=== PATIENT | female | born 1950 | race Caucasian/White ===

== ENCOUNTER 2018-02-07 18:55 | Observation (INO) | payer MEDICARE, BC, SELFPAY ==
[2018-02-07 19:00] VITALS: BP 130/66; PULSE 111; RESP 16; TEMP 36.9; O2SAT 97
--- NOTE | 2018-02-07 19:07 | DI.CT_ITS ---
SYMPTOM/DIAGNOSIS: RLQ AND MID ABD PAIN ABDOMEN AND PELVIC CT: CT scan of the abdomen and pelvis was performed following the uneventful administration of intravenous contrast material. No priors for comparison. Mild dependent atelectatic changes are seen in the lung bases. The liver is normal in size. No suspicious hepatic mass is seen. There is a tiny hypodensity in the posterior aspect of the right lobe likely reflecting a cyst. Portal and superior mesenteric veins are patent. The gallbladder wall mildly enhances and shows mild thickening measuring up to 4 mm. in diameter. There is mild pericholecystic fluid present. No stones are seen. The extrahepatic duct measures up to 1.1 cm. The pancreas is unremarkable. The spleen appears mildly enlarged but otherwise unremarkable. The adrenal glands have a normal appearance. There are bilateral renal cysts. No suspicious solid renal masses or obstruction is identified. The urinary bladder is intact. Reproductive organs are unremarkable as visualized. The aorta is of normal caliber. No significant aneurysmal dilatation is seen. No significant abdominal or pelvic adenopathy, ascites or pneumoperitoneum is present. Note is made of a small fat containing umbilical hernia. There is diverticulosis of the colon but no evidence of acute diverticulitis. The appendix is distended measuring 1.3 cm. in diameter. There is a 1.1 cm. appendicolith present. No periappendiceal abscess is seen. The remainder of the bowel is unremarkable. The bones show no acute abnormality. IMPRESSION: 1. Findings consistent with acute appendicitis with an appendicolith. No evidence of periappendiceal abscess or pneumoperitoneum. 2. Apparent gallbladder wall thickening and pericholecystic fluid. The findings may represent a concomitant acute cholecystitis. Sonographic correlation is recommended.
--- NOTE | 2018-02-07 19:15 | ED.GENADUL_ITS ---
Discharge Plan Disposition Patient Disposition: [facility] Condition: Fair Discharge Details Chief Complaint: Abd Prob Clinical Impression: Acute appendicitis Reason For Visit: ACUTE APPENDICITIS Admit Date/Time: 02/08/18 00:28 Admit Provider: Tommy Her Attending Provider: Tommy Her Primary Care Provider: Radha Alexander ED Provider: Tabby Ricci Discharge Data Discharge Date/Time-TO BE ENTERED AT DEPARTURE: 02/07/18 23:14 Medical Decision Making <JOANA Pan - Last Filed: 02/08/18 11:45> Patient 67-year-old female presenting today with chief complaint of right lower quadrant pain. Reports the pain that began around 11:00 last night. However, at that time the pain is more epigastric and periumbilical. Throughout the course today the pain has slowly migrated to the right lower quadrant. Surgical history significant for tubal ligation, no other abdominal surgeries. She is been febrile at home with T-max of 103. However, she reports this is just prior to her arrival here and she is currently afebrile. She endorses nausea but no vomiting. No change in bowel habits. No change in urinary habits. Denies any dysuria. Patient is tachycardic at 111. Currently afebrile. On exam, patient is exquisitely tender in the right lower quadrant. Positive Rovsing's sign, rebound tenderness, guarding, psoas sign. I am quite concerned , particularly given the patient's history of migratory pain from the periumbilical area to the right lower quadrant, for appendicitis. She is currently endorsing mild nausea and severe pain. She will be given morphine and Zofran. Plan to obtain CT and laboratory evaluation. Discussed this plan with the patient who is in agreement Patient is feeling much improved. 2 mg of morphine and 4 mg of Zofran. Reports he still has minimal pain but is moving easier White count significant for 21.36, neutrophil count of 19.67. UA is positive for protein, moderate blood, few epithelial and few bacteria. CT reviewed by myself as well as Dr. Martinez who is in the department. Her both concerned for appendicitis. Pending radiology report. Dr. Martinez's request, placed an order for 2 g of ceftriaxone IV. Dr. Martinez evaluated the patient, discussed surgical intervention with the patient, obtained informed consent. CT reviewed by radiologist. Liver is notable for moderate hepatic steatosis. Benign subcentimeter hepatic cyst, right lobe. Gallbladder significant for thickening with wall measuring 4 mm. Pericholecystic fluid noted, mild. Bile duct is enlarged measuring 11 mm. No definite pancreatic mass or common duct calculus seen. Spleen is normal no splenomegaly. Adrenals are normal with no mass. Kidneys and ureters are significant for a few bilateral renal cysts, largest of the left kidney measuring 19 mm. Stomach and bowel is significant for moderate sigmoid diverticulosis. Appendix is significant for dilation and fluid filled with a large appendicolith measuring 11 mm. Appendiceal diameter is 13 mm. There is mild periapical appendiceal stranding. Bladder is unremarkable as visualized. Reproductive is unremarkable as visualized. Intraperitoneal space is normal no free air or significant fluid collection. Mild lumbar scoliosis, moderate degenerative changes at disc L5-S1. Soft tissues are significant for small, fat-containing umbilical hernia. Vasculature is normal, no abdominal aortic aneurysm. Lymph nodes are normal with no enlarged lymph nodes Overall impression of the CT is significant for moderate appendicitis with large appendicolith, no surrounding fluid collection or abscess. There is also possible concomitant acute cholecystitis, without visualized gallstones. Advise correlation with abdominal ultrasound. Review these findings with the patient. I again evaluated her abdomen and she does not have any pain in the right upper quadrant, negative Fleming sign. She continues to endorse severe discomfort in the right lower quadrant with gentle palpation. I did question her on previous symptoms of cholecystitis. She does report that in June, after being treated with azithromycin for pneumonia, she developed liver pain. States she has had this occasionally, intermittently since then. Does not correlate this with food. History is very vague and unclear. At this point, I do not find any physical exam findings to suggest acute cholecystitis. I did relay the findings of the CT to Dr. Martinez and his PA. <Hari Redman DO - Last Filed: 02/07/18 20:50> EKG 19: 18 Rate 107, intervals normal, sinus tachycardia, no significant ST elevations or depressions, no T wave inversions, no Q waves, normal EKG. HPI <JOANA Pan - Last Filed: 02/08/18 11:45> General Mode of arrival: ambulatory . Date/Time Provider Initiated Documentation: 02/07/18 19:02 . Limitations to Documentation: no limitations . Information obtained by: patient . History of Present Illness 67 year old F presents to the emergency department with the chief complaint of RLQ abdominal pain, described as moderate, with intensity rated at 8. Quality is described as stabbing, and is localized to the abdomen. Patient reports no radiation. Patient started experiencing this day(s) (1) and it has been constant. No relieving factors improve symptom(s), No exacerbating factors reported . Patient notes fever/chills (states she had a fever at home with Tmax 103, endorses chills), loss of appetite and nausea/vomiting (endorses nausea, no vomiting); denies chest pain, cough, headaches, rash and shortness of breath. Related Data Home Medications Medication Instructions Recorded Confirmed cholecalciferol (vitamin D3) 400 units PO DAILY 02/07/18 02/07/18 [Vitamin D3] magnesium oxide 500 mg PO DAILY 02/07/18 02/07/18 omega-3 fatty acids [Fish Oil 1 cap PO DAILY 02/07/18 02/07/18 Concentrate] Allergies Allergy/AdvReac Type Severity Reaction Status Date / Time azithromycin AdvReac Mild didn't Unverified 02/07/18 19:43 [From Zithromax Z-Francisco] agree with her General Stated Complaint: Abd Prob NIKHIL: 3 Review of Systems <JOANA Pan - Last Filed: 02/08/18 11:45> Constitutional Reports as per HPI, Reports chills, Denies fatigue, Reports fever(s), Denies headache(s) and Reports poor appetite ENT Denies headache(s) Cardiovascular Reports as per HPI, Denies chest pain and Denies dyspnea Respiratory Denies dyspnea Gastrointestinal Reports as per HPI, Reports abdominal pain, Denies change in bowel habits, Denies heartburn, Reports nausea and Denies vomiting Genitourinary Denies system reviewed and no additional complaints, except as docu (patient denies any change in urinary habits) Musculoskeletal Reports as per HPI and Denies back pain Integumentary/Breasts Reports as per HPI and Denies rash Neurologic Denies headache(s) Endocrine Denies fatigue Exam <JOANA Pan - Last Filed: 02/08/18 11:45> Const General: cooperative, healthy appearing, uncomfortable (patient moving slowly, appears uncomfortable), no acute distress and well developed Nutritional Appearance: average body habitus and well nourished Orientation: alert and awake HENMO Head: normal to inspection Mouth: mucous membranes dry (patient appears dry on exam) Teeth and gingiva: abnormal dentition (dentures noted) Resp Effort & Inspection: normal respiratory effort, able to speak in complete sentences and no respiratory distress Auscultation: clear to auscultation bilaterally, no rales, no rhonchi and no wheezes Cardio Rate: regular rate Rhythm: regular rhythm Heart Sounds: S1 normal and S2 normal GI Inspection: abnormal to inspection (patient is very point tender over the RLQ) Palpation: no pulsatile masses, not rigid and tender in the RLQ, at McBurney's point, obturator sign positive, psoas sign positive, with rebound tenderness and Rovsing's sign positive; Fleming's sign negative Auscultation: hypoactive bowel sounds Back/Spine/Pelvis Back: no CVA tenderness Skin General skin exam: no rashes or lesions noted Trauma: no lacerations or abrasions Neuro General: alert and awake Cognition: normal cognition Speech: speech normal Gait: normal gait Psych Appearance: grossly normal and well kempt Mental Status: mental status grossly normal Speech and Movement: speech and movement normal Course <JOANA Pan - Last Filed: 02/08/18 11:45> Vital Signs Temperature 36.9 C 02/07/18 19:00 Pulse 111 H 02/07/18 19:00 Respiratory Rate 16 02/07/18 19:00 Blood Pressure 130/66 02/07/18 19:00 Pulse Oximetry 97 02/07/18 19:00 Temperature 36.9 C 02/07/18 19:00 Temperature Source Skin 02/07/18 19:00 Pulse 111 H 02/07/18 19:00 Respiratory Rate 16 02/07/18 19:00 Blood Pressure 130/66 02/07/18 19:00 Blood Pressure Position Supine 02/07/18 19:00 Pulse Oximetry 97 02/07/18 19:00 Oxygen Delivery Method Room Air 02/07/18 19:00 Oxygen Flow Rate 0 02/07/18 19:00 Pain Level 8 02/07/18 19:00
[2018-02-07 19:19] LABS: Bilirubin Small (Negative); Blood Moderate (Negative); Clarity Sl Cloudy; Glucose Negative (Negative); Ketones 40 mg/dL (Negative); Leukocyte Esterase Negative (Negative); Nitrite Negative (Negative); Specific Gravity 1.025 (1.005-1.025); Urobilinogen 0.2 EU/dL (Up TO 0.2); pH 6.5 (5-8)
[2018-02-07] MEDS: Normal Saline Flush 10 ML SYR IVP (19:25)
[2018-02-07] MEDS: Normal Saline 1,000 ML 1000 ML IV (19:25)
[2018-02-07 19:32] LABS: Bacteria Few HPF (Negative); C & S Indicated? Yes; Casts Negative LPF (Negative); Crystals Negative HPF (Negative); Epithelial Cells Few HPF (Negative); Mucus Moderate (Negative); Other Cells Negative (Negative); RBC 20-50 (0-2); WBC 20-50 HPF (0-5)
[2018-02-07 19:34] LABS: Abs Immature Grans 0.07 k/cumm (0.0-0.09); HGB 13.7 g/dL (12.0-15.5); Immature Grans % 0.3; Lymphocytes % 2.4; Mean Corp. HGB Concentration 33.4 g/dL (32.0-36.0); Mean Corpuscular Volume 86.9 fL (80-95); Mean Platelet Volume 9.7 fL (8.0-11.0); Monocytes % 5.2; Neutrophils % 92.1; Platelet Count 256 x1000/uL (130-400); RBC 4.72 m/cumm (4.00-5.20); RBC Distribution Width 13.3 % (11.7-14.6); White Blood Cell Count 21.36 k/cumm (4.4-10.8)
[2018-02-07 19:36] LABS: Absolute Lymphocyte Count 0.51 k/cumm (1.2-3.4); Absolute Monocyte Count 1.11 k/cumm (0.11-0.7); Absolute Neutrophil Count 19.67 k/cumm (1.2-6.7)
[2018-02-07] MEDS: Ondansetron 4 MG/2 ML VIAL IVP (19:38)
[2018-02-07] MEDS: MORPHine 10 MG/ML VIAL 2 MG IVP (19:39)
[2018-02-07 19:49] LABS: ALT 20 U/L (12-78); AST 18 U/L (15-37); Albumin 3.6 g/dL (3.4-5.0); Alkaline Phosphatase 98 U/L (46-116); Anion Gap 8.1 mmol/L (3-11); BUN 13 mg/dL (7-18); Bilirubin, Total 1.1 mg/dL (0.2-1.0); CO2 27.9 mmol/L (21.0-32.0); CREATININE 0.93 mg/dL (0.55-1.02); Chloride 101 mmol/L (98-107); Estimated GFR 59.78 (mL/min/1.73m2); Glucose 174 mg/dL (70-100); Magnesium 1.8 mg/dL (1.8-2.4); Potassium 3.7 mmol/L (3.5-5.1); Sodium 137 mmol/L (136-145); Total Protein 7.6 g/dL (6.4-8.2)
[2018-02-07 19:55] LABS: Troponin I < 0.02 ng/mL (0.00-0.06)
[2018-02-07] MEDS: Omnipaque 350 MG/ML 100 ML BTL IJ (20:12)
[2018-02-07 20:19] VITALS: BP 130/62; PULSE 101; RESP 16; TEMP 37; O2SAT 98
[2018-02-07 20:45] VITALS: PULSE 106; O2SAT 96
--- NOTE | 2018-02-07 21:11 | W.PREOPHP ---
Documented by User: Bonnie Lou 02/07/18 22:21 Assessment and Plan (1) Acute appendicitis: Current visit: No Status: Acute Plan: Discussed surgery including surgical technique, benefits and risks including but not limited to risk of blood clot, infection and damage to soft tissues/blood vessels and nerves. Patient gives verbal understanding of risks and elevates to proceed with surgery. Patient had opportunity to have questions answered to her satisfaction. Patient will be have appendectomy for acute appendicitis performed by Dr. Her. Ms. Arciniega is a 67 year-old female who presented to the Emergency Room with complaints of right lower quadrant pain. Patient describes pain has been ongoing for the last 24 hours. Pain had originally been generalized abdominal pain but the pain has slowly progressed starting around 4 pm this afternoon to being currently located in the right lower quadrant. She also reports nausea, dry heaving, increased spit production and diarrhea since onset of pain around 11 pm on 02/07/18. While in the ER patient had labs completed which showed elevated WBC of 21.36 H, elevated absolute neutrophils 19.67 H and elevated absolute monocytes 1.11 H. She also underwent CT scan which was reviewed by Dr. Her in the ER and showed findings consistent with acute appendicitis. Patient reports history of liver pain that has been ongoing since she received a course of Azithromycin for pneumonia in June 2017. Pain is aggravated by increased intake of sugar. Pain she has near her liver lasts for a few days. Reports would take milk thistle which did not provide pain relief. Patient reports last episode of liver associated pain approximately several weeks ago. She currently denies pain in that area. Labs done in ER showed elevated total bilirubin of 1.[address] scan report by Dr. Iniguez described Impression: Moderate appendicitis with large appendicolith, no surrounding fluid collection or abscess. There is also possible concomitant acute cholecystitis, without visualized gallstone, as described above. Correlation with abdominal ultrasound may be of value if/when clinically indicated. Pertinent Surgical Information Denies past medical history of: Hypertension, stroke, cardiac issues, angina, asthma, COPD, sleep apnea, renal issues, liver issues, hepatitis, gastrointestinal issues, ulcers, hyperlipidemia, bleeding disorders, seizures, migraines, anxiety, depression, diabetes, autoimmune disorders, thyroid issues Denies prior complications from surgery or anesthesia. Review of Systems Constitutional Denies fever(s), Denies frequent falls and Reports headache(s) ENT Reports headache(s) Cardiovascular Denies chest pain, Denies irregular heart rhythm, Denies dyspnea, Reports dyspnea on exertion (due to current pain) and Denies slow heart rate Respiratory Denies dyspnea, Reports dyspnea on exertion (due to current pain) and Denies wheezing Gastrointestinal Reports as per HPI, Reports abdominal pain (right lower quadrant pain), Denies melena, Denies hematochezia, Denies constipation, Reports diarrhea, Reports nausea and Denies vomiting Genitourinary Denies hematuria, Denies dysuria and Denies urinary urgency Neurologic Denies frequent falls and Reports headache(s) Psychiatric Denies anxiety and Denies depression Allergic/Immunologic Denies wheezing PFSH Acute appendicitis (Acute) History of hand surgery (Acute) Status post tubal ligation (Acute) Medical History Acute appendicitis (Acute) Social History marital status: Smoking/Tobacco Use Status: Former Tobacco Use how long ago did patient quit smokin years alcohol intake: current alcohol intake frequency: holidays/special occasions only substance use type: does not use Surgical History History of hand surgery (Acute) Status post tubal ligation (Acute) Social History marital status: Smoking/Tobacco Use Status: Former Tobacco Use how long ago did patient quit smokin years alcohol intake: current alcohol intake frequency: holidays/special occasions only substance use type: does not use Meds Home Medications Medication Instructions Recorded Confirmed Type cholecalciferol (vitamin D3) 400 units PO DAILY 02/07/18 02/07/18 History [Vitamin D3] magnesium oxide 500 mg PO DAILY 02/07/18 02/07/18 History omega-3 fatty acids [Fish Oil 1 cap PO DAILY 02/07/18 02/07/18 History Concentrate] Allergies Allergy/AdvReac Type Severity Reaction Status Date / Time azithromycin AdvReac Mild didn't Unverified 02/07/18 19:43 [From Zithromax Z-Francisco] agree with her Exam Const General: cooperative and other (laying in bed with eyes closed but is able to answer questions without issues) Orientation: alert and awake HENOK Head: normal to inspection, normocephalic and atraumatic Neck Neck: trachea midline Carotids: normal carotid upstroke Lymphatic: no lymphadenopathy noted Resp Effort & Inspection: normal respiratory effort and able to speak in complete sentences Auscultation: clear to auscultation bilaterally, no rales, no rhonchi and no wheezes Cardio Heart Sounds: S1 normal, S2 normal, no murmurs, no rubs and no other GI Palpation: not rigid and tender Auscultation: normal bowel sounds Other: Tenderness to palpation over right lower quadrant. Rebound tenderness also elicits pain. Positive Rovsigns sign. Results Labs : 02/07/18 19:25 02/07/18 19:25 Laboratory Results - last 24 hr 02/07/18 02/07/18 02/07/18 19:15 19:25 19:25 WBC 21.36 H RBC 4.72 Hgb 13.7 Hct 41.0 MCV 86.9 MCH 29.0 MCHC 33.4 RDW 13.3 Plt Count 256 MPV 9.7 Immature Gran % 0.3 Neutrophils % 92.1 Lymphocytes % 2.4 Monocytes % 5.2 Eosinophils % 0.0 Basophils % 0.0 Absolute Neutrophils 19.67 H Absolute Lymphocytes 0.51 L Absolute Monocytes 1.11 H Absolute Eosinophils 0.00 Absolute Basophils 0.00 Sodium 137 Potassium 3.7 Chloride 101 Carbon Dioxide 27.9 Anion Gap 8.1 BUN 13 Creatinine 0.93 Estimated GFR/1.73 m2 59.78 Glucose 174 H Calcium 9.0 Magnesium 1.8 Total Bilirubin 1.1 H AST 18 ALT 20 Alkaline Phosphatase 98 Troponin I < 0.02 Total Protein 7.6 Albumin 3.6 Urine Color Yellow Urine Clarity Sl cloudy Urine pH 6.5 Ur Specific [place] 1.025 Urine Protein 100 H Urine Ketones 40 H Urine Blood Moderate H Urine Nitrite Negative Urine Bilirubin Small H Urine Urobilinogen 0.2 Ur Leukocyte Esterase Negative Urine RBC 20-50 H Urine WBC 20-50 Ur Epithelial Cells Few Urine Crystals Negative Urine Bacteria Few Urine Casts Negative Urine Mucus Moderate Urine Other Negative Ur Culture Indicated? Yes Urine Glucose Negative Last Vital Signs Temp 37.0 C 02/07/18 20:19 Pulse 101 H 02/07/18 20:19 Resp 16 02/07/18 20:19 BP 130/62 02/07/18 20:19 Pulse Ox 98 02/07/18 20:19
--- NOTE | 2018-02-07 21:18 | DI.VRAD_ITS ---
EXAM: CT Abdomen and Pelvis With Intravenous Contrast EXAM DATE/TIME: 02/07/2018 7:10 PM CLINICAL HISTORY: 67 years old, female; Pain; Abdominal pain; Localized; Right lower quadrant (rlq); Patient HX: Rlq pain TECHNIQUE: Axial computed tomography images of the abdomen and pelvis with intravenous contrast. Coronal and sagittal reformatted images were created and reviewed. COMPARISON: No relevant prior studies available. FINDINGS: Lower thorax: Mild left basilar atelectasis. Small hiatal hernia. ABDOMEN: Liver: Moderate hepatic steatosis. Benign subcentimeter hepatic cyst, right lobe. Gallbladder and bile ducts: Gallbladder wall is thickened, measuring 4 mm. Pericholecystic fluid noted, mild. Common bile duct is enlarged, measuring 11 mm. No definite pancreatic mass or common duct calculus is seen. Pancreas: See Gallbladder And Bile Ducts Finding. Spleen: Normal. No splenomegaly. Adrenals: Normal. No mass. Kidneys and ureters: Few bilateral renal cysts; largest, left kidney, measuring 19 mm. Stomach and bowel: Moderate sigmoid diverticulosis. Appendix: Appendix is dilated and fluid-filled with a large appendicolith, measuring 11 mm. Appendiceal diameter is 13 mm. There is mild periappendiceal stranding. PELVIS: Bladder: Unremarkable as visualized. Reproductive: Unremarkable as visualized. ABDOMEN and PELVIS: Intraperitoneal space: Normal. No free air. No significant fluid collection. Bones/joints: Mild lumbar scoliosis. Moderate degenerative disc changes, L5-S1. Soft tissues: Small, fat containing umbilical hernia. Vasculature: Normal. No abdominal aortic aneurysm. Lymph nodes: Normal. No enlarged lymph nodes. IMPRESSION: Moderate appendicitis with large appendicolith, no surrounding fluid collection or abscess. There is also possible concomitant acute cholecystitis, without visualized gallstone, as described above. Correlation with abdominal ultrasound may be of value if/when clinically indicated. Dictated and Authenticated by: Guzman Iniguez MD. Ordering:TAZ CEE MD
[2018-02-07 21:22] VITALS: PULSE 106; O2SAT 96
[2018-02-07] MEDS: Lactated Ringers 1,000 ML 100 ML IV (22:00)
[2018-02-07 23:25] VITALS: BP 134/66; PULSE 98; RESP 16; TEMP 38.4; O2SAT 97
[2018-02-07] MEDS: Lactated Ringers 1,000 ML 75 ML IV (23:50)
[2018-02-08] VITALS (11 sets, daily range): BP systolic 92–131; BP diastolic 43–73; PULSE 62–94; RESP 16–21; TEMP 36.5–37.1; O2SAT 91–98
[2018-02-08] MEDS: Lidocaine 1% Pres-Free 5 ML VIAL (00:07)
--- NOTE | 2018-02-08 00:14 | APP_PTH ---
PATIENT: Lory Arciniega LOC: U#:[id number] AGE/SX: 67/F ROOM: RE02/08/[address]: Tommy Her DO : 1950 BED: A DIS: 02/09/2018 SPEC #: [id number] RECD: 02/09/18 11:29 STATUS: DANAY REQ #: [id number] ABDULLAHI: 02/08/18 00:[address]: Tommy Her DEPT: Surgical Specimen RECD BY: Kristine Qureshi ENTERED: 02/09/18 11:29 SP TYPE: Appendix OTHR DR: Radha Alexander Tissues: 1 - APPENDIX NOT INCIDENTAL Procedures: GROSS AND MICRO LEVEL 3 Comments: [id number]
--- NOTE | 2018-02-08 00:39 | W.PM.OP ---
Date of service: 02/08/18 Time of Service: 00:39 Operative Note DATE OF PROCEDURE: 02/08/18 PRE-OP DIAGNOSIS: Acute appendicitis POST-OP DIAGNOSIS: same PROCEDURE: Laparoscopic appendectomy SURGEON: Tommy Her COAL CHEMIST: Bonnie Lou ANESTHESIA: GETA (Nick Mccray CRNA; ASA 2E Mallampati class II) and local (1% lidocaine and 0.5% Marcaine with epinephrine) ESTIMATED BLOOD LOSS: 10 PATHOLOGY: other (Appendix) COMPLICATIONS: None Patient was transported to: PACU Patient's condition: stable Indications: 67-year-old female presenting to the emergency room with approximately 24 hours of generalized abdominal pain which is now localized to the right lower quadrant. She had associated nausea vomiting and diarrhea. Her white count was found to be 23,000. CT of the abdomen and pelvis subsequently showed acute appendicitis. Incidental finding also suggested cholecystitis, but recommended ultrasound follow-up. I recommended the patient laparoscopic appendectomy possible open appendectomy. I reviewed the procedure with her, and discussed the risks of the procedure. All her questions were answered to her satisfaction. Consent was obtained to proceed with laparoscopic appendectomy. Findings: Upon entering the abdomen, and inspecting at 360 degrees the appendix is identified in the right lower quadrant. The appendix was dilated all the way down to near its base with there was a short segment of normal diameter appendix. The remainder of the appendix appeared ischemic, inflamed, and suppurative. It was subsequently removed laparoscopically. The gallbladder was inspected during the surgery and no evidence of acute cholecystitis was seen. Procedure Description: The patient was brought to the preanesthesia staging area. Identification confirmed, consent signed, then brought to the operating room. Positioned on the operating table supine with all bony prominences padded. An appropriate time out was taken reviewing the patient's: identification, procedure, allergies, medications, history, special needs, and fire hazard. Antibiotics 2 g ceftriaxone were given prior to the procedure start, and sequential compression devices were placed. An endotracheal tube was placed by the CODY, and sedation was titrated for affect. Once adequate sedation was achieved, a cortez catheter was inserted into the bladder, and the abdomen was prepped with chloraprep and blocked draped in the standard sterile fashion. I started the procedure by making a 4 mm linear transverse incision above the umbilicus, blunt dissection was carried down to the linea alba which was grasped by a Korina clamp. A veress needle was then introduced into the abdomen, and the position checked with a saline drop test. A 5mm trocar was then inserted under directed visualization. The area under the veress and trocar insertion was inspected for injuries, and there were no apparent injuries seen. A second 5 mm trocar was placed in the LLQ at the level of the ASIS, and midclavicular line, with a 12 mm trocar placed two centimeters above the pubic symphysis in the midline. I inspected the gallbladder after all the trocars were in place; there was no evidence of acute cholecystitis. I identified the cecum and the right lower quadrant. The cecum was then manipulated to expose the base of the appendix . A window was created in the mesoappendix at the base of the appendix. Using a Sonoscission the mesoappendix was divided starting distal to the window working proximal. Once the mesoappendix was divided to free up the appendix. The appendix was from the cecum using an EndoGI stapler. Once divided the appendix was placed into an endocatch specimen bag. It was then removed from the abdomen and passed off for pathology. The abdomen was then irrigated with a saline. The abdomen was then desufflated. The trocars were removed under direct visualization. The 12 mm trocar fascia was closed using 0 vicryl suture with a figure of eight fascial suture. All skin incision were closed with 4-0 vicryl suture, and local was infiltrated around all incisions. All counts were reported as correct times two. There were no complications during the procedure. The patient was extubated in the OR and brought to the PACU in good condition.
--- NOTE | 2018-02-08 00:51 | ROE_ITS ---
Date of service: 02/08/18 Time of Service: 00:39 Operative Note DATE OF PROCEDURE: 02/08/18 PRE-OP DIAGNOSIS: Acute appendicitis POST-OP DIAGNOSIS: same PROCEDURE: Laparoscopic appendectomy SURGEON: Tommy Her ASSISTANT PROFESSOR OF ART: Bonnie Lou ANESTHESIA: GETA (Nick Mccray CRNA; ASA 2E Mallampati class II) and local (1 % lidocaine and 0.5% Marcaine with epinephrine) ESTIMATED BLOOD LOSS: 10 PATHOLOGY: other (Appendix) COMPLICATIONS: None Patient was transported to: PACU Patient's condition: stable Indications: 67-year-old female presenting to the emergency room with approximately 24 hours of generalized abdominal pain which is now localized to the right lower quadrant. She had associated nausea vomiting and diarrhea. Her white count was found to be 23,000. CT of the abdomen and pelvis subsequently showed acute appendicitis. Incidental finding also suggested cholecystitis, but recommended ultrasound follow-up. I recommended the patient laparoscopic appendectomy possible open appendectomy. I reviewed the procedure with her, and discussed the risks of the procedure. All her questions were answered to her satisfaction. Consent was obtained to proceed with laparoscopic appendectomy. Findings: Upon entering the abdomen, and inspecting at 360 degrees the appendix is identified in the right lower quadrant. The appendix was dilated all the way down to near its base with there was a short segment of normal diameter appendix. The remainder of the appendix appeared ischemic, inflamed, and suppurative. It was subsequently removed laparoscopically. The gallbladder was inspected during the surgery and no evidence of acute cholecystitis was seen. Procedure Description: The patient was brought to the preanesthesia staging area. Identification confirmed, consent signed, then brought to the operating room. Positioned on the operating table supine with all bony prominences padded. An appropriate time out was taken reviewing the patient's: identification, procedure, allergies , medications, history, special needs, and fire hazard. Antibiotics 2 g ceftriaxone were given prior to the procedure start, and sequential compression devices were placed. An endotracheal tube was placed by the CODY, and sedation was titrated for affect. Once adequate sedation was achieved, a cortez catheter was inserted into the bladder, and the abdomen was prepped with chloraprep and blocked draped in the standard sterile fashion. I started the procedure by making a 4 mm linear transverse incision above the umbilicus, blunt dissection was carried down to the linea alba which was grasped by a Korina clamp. A veress needle was then introduced into the abdomen , and the position checked with a saline drop test. A 5mm trocar was then inserted under directed visualization. The area under the veress and trocar insertion was inspected for injuries, and there were no apparent injuries seen. A second 5 mm trocar was placed in the LLQ at the level of the ASIS, and midclavicular line, with a 12 mm trocar placed two centimeters above the pubic symphysis in the midline. I inspected the gallbladder after all the trocars were in place; there was no evidence of acute cholecystitis. I identified the cecum and the right lower quadrant. The cecum was then manipulated to expose the base of the appendix . A window was created in the mesoappendix at the base of the appendix. Using a Sonoscission the mesoappendix was divided starting distal to the window working proximal. Once the mesoappendix was divided to free up the appendix. The appendix was from the cecum using an EndoGI stapler. Once divided the appendix was placed into an endocatch specimen bag. It was then removed from the abdomen and passed off for pathology. The abdomen was then irrigated with a saline. The abdomen was then desufflated. The trocars were removed under direct visualization. The 12 mm trocar fascia was closed using 0 vicryl suture with a figure of eight fascial suture. All skin incision were closed with 4-0 vicryl suture, and local was infiltrated around all incisions. All counts were reported as correct times two. There were no complications during the procedure. The patient was extubated in the OR and brought to the PACU in good condition.
[2018-02-08] MEDS: Lactated Ringers 1,000 ML 125 ML IV ×2 (01:04→08:56)
[2018-02-08] MEDS: Ketorolac 15 MG/ML VIAL IVP ×4 (05:25→23:10)
[2018-02-08 07:03] LABS: Abs Immature Grans 0.02 k/cumm (0.0-0.09); Absolute Lymphocyte Count 0.38 k/cumm (1.2-3.4); Absolute Monocyte Count 0.18 k/cumm (0.11-0.7); Absolute Neutrophil Count 12.03 k/cumm (1.2-6.7); HCT 34.7 % (36.0-46.0); HGB 11.4 g/dL (12.0-15.5); Immature Grans % 0.2; Mean Corp. HGB Concentration 32.9 g/dL (32.0-36.0); Mean Corpuscular Hemoglobin 29.2 pg (27.0-33.0); Mean Platelet Volume 10.1 fL (8.0-11.0); Monocytes % 1.4; Neutrophils % 95.4; Platelet Count 203 x1000/uL (130-400); RBC Distribution Width 13.6 % (11.7-14.6); White Blood Cell Count 12.61 k/cumm (4.4-10.8)
[2018-02-08 07:17] LABS: ALT 15 U/L (12-78); AST 14 U/L (15-37); Albumin 2.7 g/dL (3.4-5.0); Alkaline Phosphatase 73 U/L (46-116); Anion Gap 8.2 mmol/L (3-11); BUN 10 mg/dL (7-18); Bilirubin, Total 0.8 mg/dL (0.2-1.0); CO2 27.8 mmol/L (21.0-32.0); CREATININE 0.86 mg/dL (0.55-1.02); Calcium 8.4 mg/dL (8.5-10.1); Chloride 105 mmol/L (98-107); Glucose 146 mg/dL (70-100); Potassium 3.9 mmol/L (3.5-5.1); Sodium 141 mmol/L (136-145); Total Protein 6.1 g/dL (6.4-8.2)
[2018-02-08] MEDS: ACETAMINOPHEN 1,000 MG/100 ML BTL 400 MG IVPB ×3 (08:56→23:11)
[2018-02-08] MEDS: Normal Saline Flush 10 ML SYR IVP ×3 (13:00→23:21)
--- NOTE | 2018-02-08 13:40 | PDOC.CMIN ---
- If Service Date Differs Date of service: 02/08/18 Time of Service: 13:40 Care Management Initial Assess REASON FOR HOSPITALIZATION:: Acute Appendicitis PAST MEDICAL HISTORY/PAST SURGICAL HISTORY:: H/O hand surgery, S/P tubal ligation PREVIOUS FUNCTIONAL STATUS/SOCIAL/FAMILY SUPPORTS:: Lory resides with her Adiel and son in [place]. She is independent at baseline, drives, and manages ADL;s CURRENT FUNCTIONAL STATUS:: Currently Lory is ambulating in her room this morning, pleasant and receptive to discussion. Per [facility], Lory remains on clear liquids at this time. ADVANCE DIRECTIVES:: None on file Has patient been provided with information about the portal?: Yes Did the patient sign up for the portal?: No CODE STATUS:: Full Code INSURANCE COVERAGE / FINANCIAL ISSUES:: Medicare CURRENT HOME/COMMUNITY SERVICES/EQUIPMENT:: Currently Lory has no services or medical equipment that she utilizes in the community. PRIMARY CARE PHYSICIAN:: Radha Alexander POTENTIAL DISCHARGE NEEDS:: F/U appointment with Dr. Her PATIENT/FAMILY EDUCATION NEEDS:: Review DC instructions, any limitations, and ongoing DC planning discussion. Discuss 'Ask Me Three' ANTICIPATED BARRIERS TO DISCHARGE:: None identified at this time. TRANSPORTATION:: Via private vehicle with family. PLAN:: Lory will return home wtih no anticipated services once medically cleared. She will F/U with Dr. Her and plan of care as prescribed. lory's family to transport.
--- NOTE | 2018-02-08 15:52 | PGE_ITS ---
Date of Service Date of service: 02/08/18 Time of Service: 15:40 Assessment and Plan (1) Acute appendicitis: Current visit: No Status: Acute Acute appendicitis: Path pending, nonperforated appendix no postoperative antibiotics. Fever to 38.4 just prior to surgery we will plan to observe in hospital until without fever for 24 hours. Laparoscopic appendectomy: Continue pulmonary toilet, DVT prophylaxis, ambulation Pain management: We will start oral pain medication with plan to transition to Tylenol and Toradol to oral at discharge. Cholecystitis: No evidence of acute cholecystitis at examination during surgery we will obtain limited right upper quadrant ultrasound of gallbladder prior to discharge. Continue gallbladder workup as outpatient as needed. Diet: Advance to digestive soft. Disposition: Continue current care. Subjective Patient reports: no new complaints, still having pain, pain is less, tolerating liquids well, voiding w/o difficulty and no bowel movement; denies flatus Interval history since last seen: Has done well after Lap appendectomy for acute appendicitis. Exam Const General: cooperative, comfortable and well developed Nutritional Appearance: average body habitus and well nourished Orientation: alert, awake and oriented x3 Chest Chest: normal inspection of the chest Resp Effort & Inspection: normal respiratory effort Auscultation: clear to auscultation bilaterally Cardio Jugular venous pressure: no JVD Rhythm: regular rhythm Heart Sounds: S1 normal and S2 normal GI Inspection: incision (Clean and intact) Palpation: soft, no guarding and tender in the RLQ; with no rebound tenderness and Rovsing's sign negative Neuro General: moves all extremities, no focal motor deficits and CN's II-XI intact bilaterally Extrem General: normal capillary refill and no clubbing, cyanosis or edema Psych Appearance: grossly normal Mental Status: mental status grossly normal Attitude: cooperative Judgment: judgment good Objective Objective Clinical Data: Vital Signs - 24 hr 02/07/18 19:00 02/07/18 20:19 02/07/18 20:45 Temperature 36.9 C 37.0 C Pulse 111 H 101 H 106 H Respiratory Rate 16 16 Blood Pressure 130/66 130/62 Pulse Oximetry 97 98 96 02/07/18 21:22 02/07/18 23:25 02/08/18 00:41 Temperature 38.4 C H 36.8 C Pulse 106 H 98 H 94 H Respiratory Rate 16 20 Blood Pressure 134/66 106/46 L Pulse Oximetry 96 97 91 L 02/08/18 00:47 02/08/18 00:52 02/08/18 00:57 Temperature 36.8 C Pulse 88 86 83 Respiratory Rate 21 21 20 Blood Pressure 95/48 L 93/43 L 92/46 L Pulse Oximetry 92 L 92 L 93 L 02/08/18 01:30 02/08/18 03:50 02/08/18 07:35 Temperature 36.8 C 37.1 C 36.7 C Pulse 75 70 74 Respiratory Rate 19 18 16 Blood Pressure 96/62 L 97/61 L 112/63 Pulse Oximetry 95 94 L 96 02/08/18 11:45 Temperature 37.1 C Pulse 62 Respiratory Rate 16 Blood Pressure 110/70 Pulse Oximetry 97 Intake & Output 02/07/18 02/08/18 02/08/18 18:59 06:59 18:59 Intake Total 2687.5 / 2687.5 2123.333 / 2123.333 Output Total 700 / 700 Balance 1986.5 / 1986.5 2123.333 / 2123.333 Weight 72.7 kg Intake: IV 2687.5 / 2687.5 983.333 / 983.333 Oral 1140 / 1140 Output: Urine 650 / 650 Estimated Blood Loss 50 / 50 Other: Urine Color Yellow Urine Appearance Clear Urine Odor Normal Comment voidx3 per pT, no measurements given. Emesis Description None Voiding Methods Toilet Toilet Laboratory Results WBC 12.61 k/cumm (4.4-10.8) H D 02/08/18 06:25 RBC 3.90 m/cumm (4.00-5.20) L 02/08/18 06:25 Hgb 11.4 g/dL (12.0-15.5) L D 02/08/18 06:25 Hct 34.7 % (36.0-46.0) L 02/08/18 06:25 MCV 89.0 fL (80-95) 02/08/18 06:25 MCH 29.2 pg (27.0-33.0) 02/08/18 06:25 MCHC 32.9 g/dL (32.0-36.0) 02/08/18 06:25 RDW 13.6 % (11.7-14.6) 02/08/18 06:25 Plt Count 203 x1000/uL (130-400) 02/08/18 06:25 MPV 10.1 fL (8.0-11.0) 02/08/18 06:25 Immature Gran % 0.2 02/08/18 06:25 Neutrophils % 95.4 02/08/18 06:25 Lymphocytes % 3.0 02/08/18 06:25 Monocytes % 1.4 02/08/18 06:25 Eosinophils % 0.0 02/08/18 06:25 Basophils % 0.0 02/08/18 06:25 Absolute Neutrophils 12.03 k/cumm (1.2-6.7) H 02/08/18 06:25 Absolute Lymphocytes 0.38 k/cumm (1.2-3.4) L 02/08/18 06:25 Absolute Monocytes 0.18 k/cumm (0.11-0.7) 02/08/18 06:25 Absolute Eosinophils 0.00 k/cumm (0.0-0.7) 02/08/18 06:25 Absolute Basophils 0.00 k/cumm (0.0-0.2) 02/08/18 06:25 Sodium 141 mmol/L (136-145) 02/08/18 06:25 Potassium 3.9 mmol/L (3.5-5.1) 02/08/18 06:25 Chloride 105 mmol/L (98-107) 02/08/18 06:25 Carbon Dioxide 27.8 mmol/L (21.0-32.0) 02/08/18 06:25 Anion Gap 8.2 mmol/L (3-11) 02/08/18 06:25 BUN 10 mg/dL (7-18) 02/08/18 06:25 Creatinine 0.86 mg/dL (0.55-1.02) 02/08/18 06:25 Estimated GFR/1.73 m2 >= 60.00 (mL/min/1.73m2) 02/08/18 06:25 Glucose 146 mg/dL (70-100) H 02/08/18 06:25 Calcium 8.4 mg/dL (8.5-10.1) L 02/08/18 06:25 Magnesium 1.8 mg/dL (1.8-2.4) 02/07/18 19:25 Total Bilirubin 0.8 mg/dL (0.2-1.0) 02/08/18 06:25 AST 14 U/L (15-37) L 02/08/18 06:25 ALT 15 U/L (12-78) 02/08/18 06:25 Alkaline Phosphatase 73 U/L (46-116) 02/08/18 06:25 Troponin I < 0.02 ng/mL (0.00-0.06) 02/07/18 19:25 Total Protein 6.1 g/dL (6.4-8.2) L 02/08/18 06:25 Albumin 2.7 g/dL (3.4-5.0) L 02/08/18 06:25 Urine Color Yellow (Yellow) 02/07/18 19:15 Urine Clarity Sl cloudy 02/07/18 19:15 Urine pH 6.5 (5-8) 02/07/18 19:15 Ur Specific [place] 1.025 (1.005-1.025) 02/07/18 19:15 Urine Protein 100 mg/dL (Negative) H 02/07/18 19:15 Urine Ketones 40 mg/dL (Negative) H 02/07/18 19:15 Urine Blood Moderate (Negative) H 02/07/18 19:15 Urine Nitrite Negative (Negative) 02/07/18 19:15 Urine Bilirubin Small (Negative) H 02/07/18 19:15 Urine Urobilinogen 0.2 EU/dL (Up TO 0.2) 02/07/18 19:15 Ur Leukocyte Esterase Negative (Negative) 02/07/18 19:15 Urine RBC 20-50 (0-2) H 02/07/18 19:15 Urine WBC 20-50 HPF (0-5) 02/07/18 19:15 Ur Epithelial Cells Few HPF (Negative) 02/07/18 19:15 Urine Crystals Negative HPF (Negative) 02/07/18 19:15 Urine Bacteria Few HPF (Negative) 02/07/18 19:15 Urine Casts Negative LPF (Negative) 02/07/18 19:15 Urine Mucus Moderate (Negative) 02/07/18 19:15 Urine Other Negative (Negative) 02/07/18 19:15 Ur Culture Indicated? Yes 02/07/18 19:15 Urine Glucose Negative mg/dL (Negative) 02/07/18 19:15
[2018-02-08] MEDS: POTASSIUM CHLORIDE/D5-0.45NACL 1,000 ML 100 MEQ IV (18:30)
[2018-02-09 03:58] VITALS: BP 111/67; PULSE 61; RESP 16; TEMP 36.5; O2SAT 97
[2018-02-09] MEDS: POTASSIUM CHLORIDE/D5-0.45NACL 1,000 ML 100 MEQ IV (04:48)
[2018-02-09] MEDS: Normal Saline Flush 10 ML SYR IVP (05:52)
[2018-02-09] MEDS: Ketorolac 15 MG/ML VIAL IVP (05:52)
--- NOTE | 2018-02-09 07:02 | DI.US_ITS ---
SYMPTOMS/DIAGNOSIS: CT FINDINGS OF ACUTE CHOLECYSTITIS, DILATED DUCT LIMITED ABDOMINAL ULTRASOUND: Sonographic evaluation of the liver and gallbladder was obtained. Limited images of the liver were obtained. No gross abnormality is seen. No intrahepatic biliary ductal dilatation is present. There are several stones seen within the gallbladder, the largest measures 2.0 cm. There is debris seen within the gallbladder. The gallbladder wall is thickened at 0.4 cm. No pericholecystic fluid is seen. The common duct is dilated at 0.8 cm. No ductal stones are seen sonographically. The visualized portions of the pancreatic head are unremarkable. IMPRESSION: Cholelithiasis, gallbladder wall thickening and sludge. Mild extrahepatic common ductal dilatation without evidence of choledocholithiasis. The findings raise the question of acute cholecystitis. Please correlate clinically.
[2018-02-09 07:09] LABS: HCT 33.7 % (36.0-46.0); HGB 10.8 g/dL (12.0-15.5); Mean Corpuscular Volume 90.3 fL (80-95); Mean Platelet Volume 10.3 fL (8.0-11.0); Platelet Count 195 x1000/uL (130-400); RBC 3.73 m/cumm (4.00-5.20); RBC Distribution Width 13.9 % (11.7-14.6); White Blood Cell Count 5.24 k/cumm (4.4-10.8)
[2018-02-09 07:30] VITALS: BP 124/72; PULSE 67; RESP 16; TEMP 36.8; O2SAT 96
--- NOTE | 2018-02-09 10:38 | PDOC.CMDIS ---
- If Service Date Differs Date of service: 02/09/18 Time of Service: 10:38 LACE Index Scoring Tool - Questions: Length of Stay (in days): 2 Acuity (Admit via E.D.?): Yes E.D. Visits: 1 - Answers: Total Score: 6 Risk of Readmission: Low Risk Care Management Discharge Reason for Hospitalization: Acute Appendicitis Discharge Plan: Lory will return home today with no services. She will F/U with Dr. Her and plan of care as prescribed. Lory's family to transport. Patient/Family Education Needs: Review DC instructions, any limitations, and discuss 'Ask Me Three'
--- NOTE | 2018-02-09 12:34 | DSE_ITS ---
Date of service: 02/09/18 Time of Service: 08:00 DS: Diagnosis Discharge Diagnosis (1) Acute appendicitis: Status: Acute Asessment and Plan: Laparoscopic Appendectomy Performed: Operative Note DATE OF PROCEDURE: 02/08/18 PRE-OP DIAGNOSIS: Acute appendicitis POST-OP DIAGNOSIS: same PROCEDURE: Laparoscopic appendectomy SURGEON: Tommy Her PROCEDURE WRITER: Bonnie Lou ANESTHESIA: GETA (Nick Mccray CRNA; ASA 2E Mallampati class II) and local (1 % lidocaine and 0.5% Marcaine with epinephrine) ESTIMATED BLOOD LOSS: 10 PATHOLOGY: other (Appendix) COMPLICATIONS: None Patient was transported to: PACU Patient's condition: stable Indications: 67-year-old female presenting to the emergency room with approximately 24 hours of generalized abdominal pain which is now localized to the right lower quadrant. She had associated nausea vomiting and diarrhea. Her white count was found to be 23,000. CT of the abdomen and pelvis subsequently showed acute appendicitis. Incidental finding also suggested cholecystitis, but recommended ultrasound follow-up. I recommended the patient laparoscopic appendectomy possible open appendectomy. I reviewed the procedure with her, and discussed the risks of the procedure. All her questions were answered to her satisfaction. Consent was obtained to proceed with laparoscopic appendectomy. Findings: Upon entering the abdomen, and inspecting at 360 degrees the appendix is identified in the right lower quadrant. The appendix was dilated all the way down to near its base with there was a short segment of normal diameter appendix. The remainder of the appendix appeared ischemic, inflamed, and suppurative. It was subsequently removed laparoscopically. The gallbladder was inspected during the surgery and no evidence of acute cholecystitis was seen. Procedure Description: The patient was brought to the preanesthesia staging area. Identification confirmed, consent signed, then brought to the operating room. Positioned on the operating table supine with all bony prominences padded. An appropriate time out was taken reviewing the patient's: identification, procedure, allergies , medications, history, special needs, and fire hazard. Antibiotics 2 g ceftriaxone were given prior to the procedure start, and sequential compression devices were placed. An endotracheal tube was placed by the LEARNING SUPPORT SERVICES DIRECTOR, and sedation was titrated for affect. Once adequate sedation was achieved, a cortez catheter was inserted into the bladder, and the abdomen was prepped with chloraprep and blocked draped in the standard sterile fashion. I started the procedure by making a 4 mm linear transverse incision above the umbilicus, blunt dissection was carried down to the linea alba which was grasped by a Korina clamp. A veress needle was then introduced into the abdomen , and the position checked with a saline drop test. A 5mm trocar was then inserted under directed visualization. The area under the veress and trocar insertion was inspected for injuries, and there were no apparent injuries seen. A second 5 mm trocar was placed in the LLQ at the level of the ASIS, and midclavicular line, with a 12 mm trocar placed two centimeters above the pubic symphysis in the midline. I inspected the gallbladder after all the trocars were in place; there was no evidence of acute cholecystitis. I identified the cecum and the right lower quadrant. The cecum was then manipulated to expose the base of the appendix . A window was created in the mesoappendix at the base of the appendix. Using a Sonoscission the mesoappendix was divided starting distal to the window working proximal. Once the mesoappendix was divided to free up the appendix. The appendix was from the cecum using an EndoGI stapler. Once divided the appendix was placed into an endocatch specimen bag. It was then removed from the abdomen and passed off for pathology. The abdomen was then irrigated with a saline. The abdomen was then desufflated. The trocars were removed under direct visualization. The 12 mm trocar fascia was closed using 0 vicryl suture with a figure of eight fascial suture. All skin incision were closed with 4-0 vicryl suture, and local was infiltrated around all incisions. All counts were reported as correct times two. There were no complications during the procedure. The patient was extubated in the OR and brought to the PACU in good condition. Discharge Plan Disposition Patient Disposition: HOME Condition: Fair Discharge Details Reason For Visit: ACUTE APPENDICITIS Admit Date/Time: 02/08/18 00:28 Admit Provider: Tommy Her Attending Provider: Tommy Her Primary Care Provider: Melany AlexanderMarina Del Rey Hospital Course Hospital Course: Procedures: Laparoscopic Appendectomy HPI: 67 y/o female presenting to ER with < 24 hours of generalized abdominal pain which localized to RLQ by time of presentation to the ER. She had assoiciated n/v. Her WBC 21, and CT A/P subsequently showed findings of acute appendicitis with question of cholecystitis. It was recommended that she undergo a laparoscopic appendectomy possible open appendectomy. The procedure was reviewed with her, and risks of the procedure were discussed. All her questions were answered to her satisfaction. No promises were made, or guarantees given. Consent was obtaine to proceed with laparoscopic appendectomy. Hospital course: Patient underwent Lap. appendectomy without complications. Her post operative course was unremarkable. She did have a fever to 38.4 around the time of surgery , so she was observed until she had an complete 24 hours without a fever. The appendix was not perforated. No antibiotics were given after the preoperative ceftriaxone. Otherwise, she did very well post-operatively. She was up ambulating at base line postoperatively. Her diet was advanced without difficulty. Her pain control was transition to PO pain medications without difficulty, and she required no narcotic pain medication post operatively. By Postoperative day one she was tolerating a diet, her pain was controlled with oral medications, she was afebrile, and ambulating at baseline. She was discharged home Home Meds and New Rx's Prescriptions: New ibuprofen 200 mg capsule 600 mg PO QID PRN (Reason: appendectomy) Qty: 30 RF: 0 acetaminophen [Tylenol] 325 mg capsule 650 mg PO Q4H PRNQty: 30 RF: 0 Continue omega-3 fatty acids [Fish Oil Concentrate] 1,000 mg Capsule 1 cap PO DAILY RF: 0 cholecalciferol (vitamin D3) [Vitamin D3] 400 unit Tablet 400 units PO DAILY RF: 0 magnesium oxide 500 mg Tablet 500 mg PO DAILY RF: 0 Discharge Instructions Instructions: Laparoscopic Appendectomy (DC) Additional Instructions: General Surgery Discharge Information Discharge Activities: 1. Continue incentive spirometry 10-15 times~every hour while awake and as tolerated 2. Ambulate at least 3 times a day for 15 minutes and as tolerated 3. Out of bed at least 3 times a day for 2 hours at a time, and as tolerated 4. You can shower, pat wounds dry, do not rub Restrictions: 1. No heavy lifting, pushing, or pulling over 20 pounds for 2 weeks, no strenuous bending or twisting. 2. No swimming, baths, or immersion of wounds in water for 2 weeks. If you are having fever, chills, nausea, vomiting, pain not controlled with pain medications, bleeding or drainage from your wounds. Call [phone] or [phone] (after hours). I understand the above instructions and have no questions. _ Signature of Patient or Responsible Adult Escort Date/Time _ Name of Responsible Adult Escort _ Sugnature of Nurse Date/Time Stand Alone Forms: Nursing Discharge Form Referrals: Tommy Her DO [ [facility] STAFF PHYSICIAN] - 03/02/18 9:15 am (Follow up after Lap appendectomy) Activity:: see instruction Equipment/Supplies:: No Equipment Needed Diet:: As Tolerated Discharge Orders Discharge Orders: Discharge Order (Routine); Ordered 02/09/18 Ordered By: Tommy Her Discharge Data Discharge Date/Time-TO BE ENTERED AT DEPARTURE: 02/09/18 09:34 DS: Summary Status at Discharge Functional status at discharge: independent ambulation Overall status at discharge: patient is progressing back to baseline Time Spent with Patient Less than 30 minutes Exam Const General: cooperative and no acute distress Nutritional Appearance: average body habitus and well nourished Orientation: alert, awake and oriented x3 HENMT Head: normal to inspection, normocephalic and atraumatic Ears: hearing grossly normal bilaterally General nose exam: external nose normal Face and sinus: normal facial exam Mouth: oral mucosae normal Eyes General: appearance normal, both eyes and all related structures Periorbital: periorbital findings normal Sclera: sclerae normal Pupils: PERRL EOM: EOM intact bilaterally Neck Neck: full ROM, trachea midline and supple Chest Chest: normal inspection of the chest Resp Effort & Inspection: normal respiratory effort and able to speak in complete sentences Auscultation: clear to auscultation bilaterally Cardio Rate: regular rate Rhythm: regular rhythm Heart Sounds: S1 normal and S2 normal GI Inspection: non-distended and incision (clean and intact) Palpation: soft, no guarding and tender in the RLQ (mild ttp); with no rebound tenderness Percussion: normal to percussion Skin General skin exam: no rashes or lesions noted and turgor normal Neuro General: moves all extremities, no focal motor deficits and CN's II-XI intact bilaterally Extrem General: no clubbing, cyanosis or edema Psych Appearance: grossly normal Mental Status: mental status grossly normal Mood: congruent mood Affect: normal affect Judgment: judgment good DS: Data Vitals/I&O Vitals and I&O: Vital Signs Temperature 36.8 C 02/09/18 07:30 Temperature Source Skin 02/09/18 07:30 Pulse 67 02/09/18 07:30 Pulse Rhythm Regular 02/09/18 07:30 Respiratory Rate 16 02/09/18 07:30 Respiratory Effort Non-Labored 02/09/18 07:30 Respiratory Depth Normal 02/09/18 07:30 Respiratory Pattern Normal 02/09/18 07:30 Blood Pressure 124/72 02/09/18 07:30 Blood Pressure Position Supine 02/07/18 19:00 Pulse Oximetry 96 02/09/18 07:30 Respiratory End-tidal CO2 34 02/08/18 00:57 Oxygen Delivery Method Room Air 02/09/18 07:30 Oxygen Flow Rate 0 02/09/18 07:30 Pain Level 5 02/09/18 07:30 Comment 02/08/18 11:45 Intake & Output 02/08/18 02/09/18 02/09/18 18:59 06:59 18:59 Intake Total 2803.333 / 2803.333 1315 / 1315 1846.667 / 1846.667 Balance 2803.333 / 2803.333 1315 / 1315 1846.667 / 1846.667 Intake: IV 1183.333 / 6249.385 5998 / 1315 1056.667 / 1056.667 Oral 1620 / 1620 790 / 790 Other: Urine Color Yellow Urine Appearance Clear Comment voidx3 per pT, no measurements given. Void x1 in the toilet. RN unable to visualize urine. Voiding Methods Toilet Toilet Labs on day of discharge: Labs from last 24 hours 02/09/18 06:23 WBC 5.24 D RBC 3.73 L Hgb 10.8 L Hct 33.7 L MCV 90.3 MCH 29.0 MCHC 32.0 RDW 13.9 Plt Count 195 MPV 10.3 PFSH Acute appendicitis (Acute) History of hand surgery (Resolved) Status post tubal ligation (Resolved) Medical History Acute appendicitis (Acute) Social History Smoking/Tobacco Use Status: Former Tobacco Use how long ago did patient quit smokin years alcohol intake: current alcohol intake frequency: holidays/special occasions only substance use type: does not use Surgical History History of hand surgery (Resolved) Status post tubal ligation (Resolved) Social History Smoking/Tobacco Use Status: Former Tobacco Use how long ago did patient quit smokin years alcohol intake: current alcohol intake frequency: holidays/special occasions only substance use type: does not use
== END 2018-02-09 09:34 | disposition home or self-care (01) ==
LOC: ER 23:00 → SUR 23:15 → MS 02-08 01:36
PROVIDERS: Admitting Provider Surgery; Emergency Provider Physician Assistant; PCP Family Medicine; Visit Provider Surgery
PROC: 0DTJ4ZZ Resection of Appendix, Percutaneous Endoscopic Approach (ICD-10-PCS; CPT 44970; principal; 2018-02-07 21:05)
DX: K35.890 Other acute appendicitis without perforation or gangrene (principal); R50.9 Fever, unspecified
CPT/HCPCS: 44970; 36415; 80053; 85027; 93005; 96361; 96365; 96375; 99219; 99285; NC; 74177; 76705; 81003; 81015; 83735; 84484; 85025; 87086; 88304; 93010; G0378; J0131; J1100; J1885; J2250; J2270; J2405; J3010; J3490

== ENCOUNTER 2018-02-24 06:13 | Day surgery (SDC) | payer MEDICARE, BC, SELFPAY ==
[2018-02-24] VITALS (7 sets, daily range): BP systolic 112–139; BP diastolic 50–73; PULSE 61–72; RESP 13–22; TEMP 36.4–36.7; O2SAT 97–99
[2018-02-24] MEDS: Lactated Ringers 1,000 ML 30 ML IV ×2 (06:55→08:27)
[2018-02-24 07:08] LABS: ALT 20 U/L (12-78); AST 17 U/L (15-37); Albumin 3.6 g/dL (3.4-5.0); Alkaline Phosphatase 95 U/L (46-116); BUN 9 mg/dL (7-18); Bilirubin, Total 1.4 mg/dL (0.2-1.0); CREATININE 0.92 mg/dL (0.55-1.02); Calcium 9.1 mg/dL (8.5-10.1); Chloride 105 mmol/L (98-107); Glucose 106 mg/dL (70-100); Potassium 3.4 mmol/L (3.5-5.1); Sodium 145 mmol/L (136-145); Total Protein 7.1 g/dL (6.4-8.2)
[2018-02-24] MEDS: Omnipaque 300 MG/ML 50 ML BTL (08:41)
--- NOTE | 2018-02-24 08:55 | DI.RAD_ITS ---
SYMPTOM/DIAGNOSIS: CHOLELITHIASIS CHOLANGIOGRAM: Fluoroscopy Time: 20 sec 2.76 mGy An intraoperative cholangiogram was carried out and reveals opacification of the cystic duct remnant where the spiral valves of heister are well demonstrated. No mass or obstruction is noted at this level. There is dilatation of the common hepatic and common duct. The proximal portion of the right and left hepatic duct is visualized. Also the proximal and mid portion of the main pancreatic duct are demonstrated and appear unremarkable. There is free flow of contrast material in to the duodenum. SUMMARY: Normal O.R. cholangiogram.
[2018-02-24] MEDS: Cellulose,Oxidized 4X8 1 PACKET MC (08:56)
--- NOTE | 2018-02-24 09:01 | GB_PTH ---
PATIENT: Lory Arciniega LOC: [facility] U#:[id number] AGE/SX: 67/F ROOM: RE02/24/[address]: Tommy Her DO : 1950 BED: DIS: 02/24/2018 SPEC #: [id number] RECD: 02/24/18 12:42 STATUS: DANAY REQ #: [id number] ABDULLAHI: 02/24/18 09:[address]: Tommy Her DEPT: Surgical Specimen RECD BY: Kristine Qureshi ENTERED: 02/24/18 12:42 SP TYPE: GB OTHR DR: Radha Alexander Tissues: 1 - GALLBLADDER Procedures: GROSS AND MICRO LEVEL 3 Comments: [id number]
[2018-02-24] MEDS: Lidocaine 1% Pres-Free 5 ML VIAL (09:15)
--- NOTE | 2018-02-24 09:30 | PDOC.DSDIS_ITS ---
Discharge Plan Disposition Patient Disposition: HOME Condition: Good Discharge Details Reason For Visit: Biliary Colic Attending Provider: Tommy Her Primary Care Provider: Radha Alexander Home Meds and New Rx's Prescriptions: New tramadol 50 mg Tablet 50 mg PO Q6H PRN PRNQty: 12 RF: 0 Continued omega-3 fatty acids [Fish Oil Concentrate] 1,000 mg Capsule 1 cap PO DAILY RF: 0 cholecalciferol (vitamin D3) [Vitamin D3] 400 unit Tablet 400 units PO DAILY RF: 0 magnesium oxide 500 mg Tablet 500 mg PO DAILY RF: 0 ibuprofen 200 mg capsule 600 mg PO QID PRN (Reason: appendectomy) Qty: 30 RF: 0 acetaminophen [Tylenol] 325 mg capsule 650 mg PO Q4H PRNQty: 30 RF: 0 Enzyme Digest Capsule 2 cap PO .LUNCH, DINNER RF: 0 Cbd Oil RF: 0 vitamin E 400 unit Capsule 400 unit PO DAILY RF: 0 calcium carbonate-vitamin D3 [Calcium 500 + D (D3)] 500 mg(1,250mg) -125 unit Tablet 2 tab PO DAILY RF: 0 Tumeric RF: 0 Protilis RF: 0 Gentain RF: 0 Cbd Oil 1 ea PO PRN PRNRF: 0 Discharge Instructions Instructions: Laparoscopic Cholecystectomy (DC) Additional Instructions: General Surgery Discharge Information Discharge Activities: 1. Skin glue will wear off in a couple weeks 2. Ambulate at least 3 times a day for 15 minutes and as tolerated 3. Out of bed at least 3 times a day for 2 hours at a time, and as tolerated 4. You can shower, pat wounds dry, do not rub Restrictions: 1. No heavy lifting, pushing, or pulling, over 20 pounds for 2 weeks, no strenuous bending or twisting. 2. No swimming, baths, or immersion of wounds in water for 2 weeks. If you are having fever, chills, nausea, vomiting, pain not controlled with pain medications, bleeding or drainage from your wounds. Call [phone] or [phone] (after hours). I understand the above instructions and have no questions. Signature of Patient or Responsible Adult Escort Date/Time Name of Responsible Adult Escort Signature of Nurse Date/Time Stand Alone Forms: DSU Post op Instructions, Chencho Hubbard (DSU) Referrals: Tommy Her DO [ [facility] STAFF PHYSICIAN] - 03/11/18 9:15 am (Follow up after cholecystectomy) Activity:: see instructions Remove Dressings/Wound Care:: Do Not Remove Shower/Bathe:: 24 hours Diet:: low fat Discharge Orders Discharge Orders: Discharge Order (Routine); Ordered 02/24/18 Ordered By: Tommy Her DS: Diagnosis Discharge Diagnosis (1) Biliary colic: Status: Acute Asessment and Plan: Laparoscopic Cholecystectomy performed: Operative Note DATE OF PROCEDURE: 02/24/18 PRE-OP DIAGNOSIS: Biliary colic POST-OP DIAGNOSIS: other (Chronic cholecystitis with cholelithiasis) PROCEDURE: Laparoscopic cholecystectomy with intraoperative cholangiogram SURGEON: Tommy Her VEHICLE OPERATOR: Radha Peoples ANESTHESIA: GETA (Hien Hidalgo CRNA; ASA 2 Mallampati class II) and local (1% lidocaine with 0.5% Marcaine with epinephrine) ESTIMATED BLOOD LOSS: 2 PATHOLOGY: other (Gallbladder) COMPLICATIONS: None Patient was transported to: PACU Patient's condition: stable Laboratory Tests 02/24/18 06:45 Total Bilirubin 1.4 H AST 17 ALT 20 Alkaline Phosphatase 95 Albumin 3.6 Indications: 67-year-old female who originally presented 2 weeks ago with acute appendicitis. CT at the time indicated acute appendicitis, but also suggested acute cholecystitis with dilated biliary duct, thickened gallbladder wall, and question of pericholecystic fluid. Patient at that time underwent laparoscopic appendectomy without complications, the gallbladder was inspected at that time and found not to have acute findings. Subsequent abdominal ultrasound did demonstrate cholelithiasis and patient's history suggestive of biliary colic, with right upper quadrant pain after eating fatty meals and associated nausea and occasional vomiting. Pain often radiated to the right scapula. It was recommended that she undergo laparoscopic cholecystectomy after appropriate period of recovery from her acute appendicitis. It is been a little over 2 weeks since her surgery which she is recovering from well, and she presents today for laparoscopic cholecystectomy with intraoperative cholangiogram. Findings: Intraoperative cholangiogram demonstrated no definitive filling defects to suggest a common duct stone. There was prompt filling of the duodenum the biliary tree was well-defined to the secondary branches. Short segment of the pancreatic duct was visualized. There was a question of a kinking of the common duct in the pancreatic head. We will reviewed this with radiologist, with a plan for MRCP to further elucidate this if need be. Gallbladder was removed laparoscopically. Procedure Description: The patient was brought to the pre-anesthesia staging area where her name and identification were confirmed. The patient was then brought to the operating room, and placed supine on the table. All bony prominence were padded. The patient received pre-operative antibiotics, cefotetan 2 g IV. An appropriate time out was performed addressing the patient's: identification, allergies, medications, antibiotics, blood bank, metal, and fire risks. An endotracheal tube was placed by the CONTINUOUS YARN DYEING MACHINE OPERATOR, and sedation was titrated for effect. Once adequate sedation was achieved, the abdomen was prepped with chloroprep, and blocked draped in the standard sterile fashion. I began by making a 4mm linear, transverse, supraumbilical incision, blunt dissection was carried down to the linea alba which was grasped and elevated. A veress needle was then inserted into the abdomen, with its positioning checked by the saline drop test. The abdomen was then inflated to 15 mmHg without apparent incident. A 5mm trocar was then inserted into the abdomen, through the incision, under direct visualization. The area under the veress needle, and trocar insertion was inspected, and no there was no apparent injury. The upper abdomen was then inspected 180 degrees. The Gallbladder was identified in the right upper quadrant the coloration was consistent with chronic cholecystitis. The liver appeared normal, and no other acute pathology was identified. I then placed the remainder of my trocars under direct visualization. A 12 mm trocar was placed subxiphoid in the midline. Two 5mm trocars were placed in the RUQ, two centimeters subcostal. One was placed at the anterior axillary line, and the other was placed at the mid-clavicular line. The gallbladder was then grasped by the fundus which was elevated up over the dome of theliver. The patient was placed in reverse trendelenburg with left side down. The infundibulum was then exposed; subsequently, manipulated caudad, and laterally. This exposed the triangle of Calot. The peritoneum overlying the cystic duct, and artery was then stripped from proximal from the gallbladder to distal exposing the cystic duct and artery. These were then circumferentially dissected which exposed the critial view of the cystic duct, cystic artery, with liver behind. A Muñoz clamp was placed over the infundibulum, and a catheter threaded into the duct side of the infundibulum. Its positioning was then tested with saline. Once positioning was confirmed a cholangiogram was performd. The choleangiogram showed the cystic duct, CBD, common hepatic ducts, and left and right hepatic ducts clearly. There was prompt uptake of contrast into the duodenum, and no filling defects were visualized. The cystic duct and artery were then clipped, with to clips distal to the gallbladder, one clip proximal. The cystic duct and cystic artery were then divided between the proximal and distal clips. The gallbladder was then excised from the gallbladder fossa of the liver in the standard antegrade fashion with cautery. Once, the gallbladder was from the fossa, it was placed in a endocatch bag and removed from the abdomen. The right upper quadrant was then irrigated. Hemostasis was obtained with cautery, and surgicel was used to re-enforce hemostasis in the fossa. The abdomen was then desufflated, and the trocars removed under direct visualization. All skin inscisions were closed with 4-0 vicryl in a subcuticular fashion. Local was infiltrated around all the incsions. All counts were reported as correct times two. The patient was extubated in the OR, and brought to the post ansthesia care unit in good condition.
--- NOTE | 2018-02-24 09:33 | ROE_ITS ---
Date of service: 02/24/18 Time of Service: 09:30 Operative Note DATE OF PROCEDURE: 02/24/18 PRE-OP DIAGNOSIS: Biliary colic POST-OP DIAGNOSIS: other (Chronic cholecystitis with cholelithiasis) PROCEDURE: Laparoscopic cholecystectomy with intraoperative cholangiogram SURGEON: Tommy Her MECHANICAL FACILITIES TECHNICIAN: Radha Peoples ANESTHESIA: GETA (Hien Hidalgo CRNA; ASA 2 Mallampati class II) and local (1% lidocaine with 0.5% Marcaine with epinephrine) ESTIMATED BLOOD LOSS: 2 PATHOLOGY: other (Gallbladder) COMPLICATIONS: None Patient was transported to: PACU Patient's condition: stable Implants: Laboratory Tests 02/24/18 06:45 Total Bilirubin 1.4 H AST 17 ALT 20 Alkaline Phosphatase 95 Albumin 3.6 Indications: 67-year-old female who originally presented 2 weeks ago with acute appendicitis. CT at the time indicated acute appendicitis, but also suggested acute cholecystitis with dilated biliary duct, thickened gallbladder wall, and question of pericholecystic fluid. Patient at that time underwent laparoscopic appendectomy without complications, the gallbladder was inspected at that time and found not to have acute findings. Subsequent abdominal ultrasound did demonstrate cholelithiasis and patient's history suggestive of biliary colic, with right upper quadrant pain after eating fatty meals and associated nausea and occasional vomiting. Pain often radiated to the right scapula. It was recommended that she undergo laparoscopic cholecystectomy after appropriate period of recovery from her acute appendicitis. It is been a little over 2 weeks since her surgery which she is recovering from well, and she presents today for laparoscopic cholecystectomy with intraoperative cholangiogram. Findings: Intraoperative cholangiogram demonstrated no definitive filling defects to suggest a common duct stone. There was prompt filling of the duodenum the biliary tree was well-defined to the secondary branches. Short segment of the pancreatic duct was visualized. There was a question of a kinking of the common duct in the pancreatic head. We will reviewed this with radiologist, with a plan for MRCP to further elucidate this if need be. Procedure Description: The patient was brought to the pre-anesthesia staging area where her name and identification were confirmed. The patient was then brought to the operating room, and placed supine on the table. All bony prominence were padded. The patient received pre-operative antibiotics, cefotetan 2 g IV. An appropriate time out was performed addressing the patient's: identification, allergies, medications, antibiotics, blood bank, metal, and fire risks. An endotracheal tube was placed by the DIRECTOR OF PHILANTHROPY, and sedation was titrated for effect. Once adequate sedation was achieved, the abdomen was prepped with chloroprep, and blocked draped in the standard sterile fashion. I began by making a 4mm linear, transverse, supraumbilical incision, blunt dissection was carried down to the linea alba which was grasped and elevated. A veress needle was then inserted into the abdomen, with its positioning checked by the saline drop test. The abdomen was then inflated to 15 mmHg without apparent incident. A 5mm trocar was then inserted into the abdomen, through the incision, under direct visualization. The area under the veress needle, and trocar insertion was inspected, and no there was no apparent injury. The upper abdomen was then inspected 180 degrees. The Gallbladder was identified in the right upper quadrant the coloration was consistent with chronic cholecystitis. The liver appeared normal, and no other acute pathology was identified. I then placed the remainder of my trocars under direct visualization. A 12 mm trocar was placed subxiphoid in the midline. Two 5mm trocars were placed in the RUQ, two centimeters subcostal. One was placed at the anterior axillary line, and the other was placed at the mid-clavicular line. The gallbladder was then grasped by the fundus which was elevated up over the dome of theliver. The patient was placed in reverse trendelenburg with left side down. The infundibulum was then exposed; subsequently, manipulated caudad, and laterally. This exposed the triangle of Calot. The peritoneum overlying the cystic duct, and artery was then stripped from proximal from the gallbladder to distal exposing the cystic duct and artery. These were then circumferentially dissected which exposed the critial view of the cystic duct, cystic artery, with liver behind. A Muñoz clamp was placed over the infundibulum, and a catheter threaded into the duct side of the infundibulum. Its positioning was then tested with saline. Once positioning was confirmed a cholangiogram was performd. The choleangiogram showed the cystic duct, CBD, common hepatic ducts, and left and right hepatic ducts clearly. There was prompt uptake of contrast into the duodenum, and no filling defects were visualized. The cystic duct and artery were then clipped, with to clips distal to the gallbladder, one clip proximal. The cystic duct and cystic artery were then divided between the proximal and distal clips. The gallbladder was then excised from the gallbladder fossa of the liver in the standard antegrade fashion with cautery. Once, the gallbladder was from the fossa, it was placed in a endocatch bag and removed from the abdomen. The right upper quadrant was then irrigated. Hemostasis was obtained with cautery, and surgicel was used to re-enforce hemostasis in the fossa. The abdomen was then desufflated, and the trocars removed under direct visualization. All skin inscisions were closed with 4-0 vicryl in a subcuticular fashion. Local was infiltrated around all the incsions. All counts were reported as correct times two. The patient was extubated in the OR, and brought to the post ansthesia care unit in good condition.
[2018-02-24] MEDS: Ondansetron 4 MG/2 ML VIAL IVP (09:48)
[2018-02-24] MEDS: traMADol 50 MG TAB PO (10:49)
== END 2018-02-24 11:28 | disposition home or self-care (01) ==
PROVIDERS: PCP Family Medicine; Visit Provider Surgery
PROC: 0FT44ZZ Resection of Gallbladder, Percutaneous Endoscopic Approach (ICD-10-PCS; CPT 47563; principal; 2018-02-24 07:30)
DX: R10.84 Generalized abdominal pain (principal); K80.10 Calculus of gallbladder with chronic cholecystitis without obstruction; K82.8 Other specified diseases of gallbladder
CPT/HCPCS: 47563; 36415; 80053; 74300; 88304; J0690; J1100; J1885; J2405; J3010; Q9967

== ENCOUNTER → 2018-03-11 13:46 | Outpatient (BNVA) | payer MEDICARE, SELFPAY | PROVIDERS: PCP Family Medicine; Referring Provider Family Medicine; Visit Provider Surgery | DX: Z48.815 Encounter for surgical aftercare following surgery on the digestive system (principal); K80.10 Calculus of gallbladder with chronic cholecystitis without obstruction ==

== ENCOUNTER 2018-03-30 00:25 | Outpatient (CLI) | payer MEDICARE, BC, SELFPAY ==
--- NOTE | 2018-03-30 13:51 | DI.US_ITS ---
SYMPTOMS/DIAGNOSIS: PAIN, F/U ABNORMAL CT SCAN, ABNORMAL GALLBLADDER WITH DYSPLASIA ON PATHOLOGY, S/P CHOLECYSTECTOMY ON 02/24/18, PAIN/DISCOMFORT SINCE SURGERY MRI OF THE ABDOMEN: Pre and post contrast MRI of the abdomen was performed. Comparison CT scan is 02/07/18. In the region of the gallbladder fossa, there is a 1.6 x 1.4 cm round collection, which is hyperintense on T2 and hypointense on T1 weighted images. Following contrast administration, there is peripheral enhancement noted. This was not present on the CT scan of the abdomen and pelvis prior to cholecystectomy. There is no biliary ductal dilatation. No hepatic mass is seen. There are a few tiny hyperintense foci on the T2 weighted images, likely reflecting small cysts within the liver. The pancreas is unremarkable. There are bilateral renal cysts, the largest is seen in the left kidney and measures 1.9 x 1.8 cm. No abdominal ascites is present. The spleen appears grossly unremarkable. IMPRESSION: 1. Status post cholecystectomy. 2. New 1.6 cm fluid collection seen in the region of the gallbladder fossa. It shows thin peripheral enhancement following contrast administration. Differential considerations include abscess, resolving hematoma or seroma or biloma. 3. No intra/extra-hepatic biliary ductal dilatation. 4. Bilateral renal cysts.
[2018-03-30] MEDS: Gadoterate meglumine 20 ML VIAL 15 ML IVP (15:03)
== END 2018-03-30 00:45 ==
PROVIDERS: PCP Family Medicine; Visit Provider Surgery
DX: G89.18 Other acute postprocedural pain (principal); N28.1 Cyst of kidney, acquired; Z90.49 Acquired absence of other specified parts of digestive tract; K68.11 Postprocedural retroperitoneal abscess
CPT/HCPCS: 74183

== ENCOUNTER 2018-10-18 11:50 | Emergency (ER) | payer MEDICARE, BC, SELFPAY ==
[2018-10-18 12:03] VITALS: BP 146/92; TEMP 36.6
--- NOTE | 2018-10-18 12:23 | ED.GENADUL_ITS ---
Discharge Plan Disposition Patient Disposition: HOME Condition: Good Discharge Details Chief Complaint: RashLesion Clinical Impression: Tick bite Primary Care Provider: Radha Alexander ED Provider: Hari Redman Home Meds and New Rx's Prescriptions: New doxycycline hyclate 100 mg tablet 100 mg PO BID 10 Days Qty: 20 RF: 0 No Action omega-3 fatty acids [Fish Oil Concentrate] 1,000 mg Capsule 1 cap PO DAILY RF: 0 cholecalciferol (vitamin D3) [Vitamin D3] 400 unit Tablet 400 units PO DAILY RF: 0 magnesium oxide 500 mg Tablet 500 mg PO DAILY RF: 0 ibuprofen 200 mg capsule 600 mg PO QID PRN (Reason: appendectomy) Qty: 30 RF: 0 acetaminophen [Tylenol] 325 mg capsule 650 mg PO Q4H PRNQty: 30 RF: 0 Enzyme Digest Capsule 2 cap PO .LUNCH, DINNER RF: 0 Cbd Oil RF: 0 vitamin E 400 unit Capsule 400 unit PO DAILY RF: 0 calcium carbonate-vitamin D3 [Calcium 500 + D (D3)] 500 mg(1,250mg) -125 unit Tablet 2 tab PO DAILY RF: 0 Tumeric RF: 0 Protilis RF: 0 Cbd Oil 1 ea PO PRN PRNRF: 0 Discharge Instructions Instructions: Tick Bite (ED) Additional Instructions: Your rash is concerning given the source being a tick bite. Although it does not look like Lyme disease at this time I do feel that this could certainly develop into it. Please take the antibiotic as directed. Do not take it with calcium carbonate, or milk or dairy products. Make sure to take it on a full stomach otherwise it can cause nausea or vomiting. Avoid any significant light exposure as he will have notable increase in photosensitivity while on this antibiotic. If you notice any worsening of your symptoms, or any new symptoms such as vomiting, diarrhea, fever, chills, shortness of breath, chest pain, numbness, weakness, or fainting , please return immediately to the emergency department for reevaluation. Please follow up with your primary care provider as soon as possible for reassessment and reevaluation. As always, it was a pleasure participating in your medical care today. Discharge Data Discharge Date/Time-TO BE ENTERED AT DEPARTURE: 10/18/18 13:12 Medical Decision Making This is a 68-year-old female who presents with a rash on her buttock. 1 week ago she has but I think she removed the tick and its head, they heard the tick. More like a dog tick not a deer tick. She does not have to take at this time. 24 hours ago she noticed a mild rash on her buttock, which eventually led to a bull's-eye-like lesion. She denies any other systemic symptoms of fever or chills. No arthralgias or myalgias. Vital signs are notably unremarkable. Signs and symptoms appear consistent with a mild rash secondary to a tick bite. No lesions in the mouth or hands. No evidence of life-threatening erythema migrans is certainly on the nipple. It may just be a histaminic rash as well, however because of the atypical timing though I do feel that treatment is indicated. We will give doxycycline course for the patient. We discussed red flags for which to watch out for as well as the side effects of the medication. I have extensively reviewed the treatment plan and discharge instructions with the patient. I have addressed all patient concerns at this time. The patient was made aware of what symptoms to monitor for that would warrant a return to the emergency department. Discussed the plan with the patient, they demonstrate verbal understanding and agreement with our assessment and plan at this time. HPI General Date/Time Provider Initiated Documentation: 10/18/18 12:18 . HPI Narrative: This is a 68-year-old female with no significant past medical history who presents today for evaluation of a tick bite. 1 week ago she was bit on her buttock by a tick, she removed the tick completely. She states that it was a black tick with no red. There is no significant redness or rash at that time, she remained asymptomatic however 24 hours ago she noticed a small red lesion at the site where the tick had bitten, 12 hours ago she noted a bull's-eye-like target lesion, and then currently she notes significant erythema mild tenderness in that area. Aside for this rash she denies any symptoms of fever, chills, arthralgias or myalgias. She denies any headache or neck pain. She has no other complaints at this time. No other modifying factors. Related Data Home Medications Medication Instructions Recorded Confirmed cholecalciferol (vitamin D3) 400 units PO DAILY 02/07/18 03/11/18 [Vitamin D3] magnesium oxide 500 mg PO DAILY 02/07/18 03/11/18 omega-3 fatty acids [Fish Oil 1 cap PO DAILY 02/07/18 03/11/18 Concentrate] acetaminophen [Tylenol] 650 mg PO Q4H PRN #30 cap 02/09/18 03/11/18 ibuprofen 600 mg PO QID PRN #30 cap 02/09/18 03/11/18 Cbd Oil 02/20/18 03/11/18 Protilis 02/20/18 03/11/18 Tumeric 02/20/18 03/11/18 calcium carbonate-vitamin D3 2 tab PO DAILY 02/20/18 03/11/18 [Calcium 500 + D (D3)] digestive enzymes [Enzyme Digest] 2 cap PO .LUNCH, DINNER 02/20/18 03/11/18 vitamin E 400 unit PO DAILY 02/20/18 03/11/18 Cbd Oil 1 ea PO PRN PRN 02/24/18 03/11/18 doxycycline hyclate 100 mg PO BID 10 Days #20 tab 10/18/18 Previous Rx's Medication Instructions Recorded acetaminophen [Tylenol] 650 mg PO Q4H PRN #30 cap 02/09/18 ibuprofen 600 mg PO QID PRN #30 cap 02/09/18 doxycycline hyclate 100 mg PO BID 10 Days #20 tab 10/18/18 Allergies Allergy/AdvReac Type Severity Reaction Status Date / Time azithromycin AdvReac Mild didn't Verified 03/11/18 13:51 [From Zithromax Z-Francisco] agree with her General Stated Complaint: RashLesion NIKHIL: 4 Review of Systems Review of Systems All systems reviewed & are unremarkable except as noted in HPI and below PFSH Surgical History (Updated 03/07/18 @ 11:46 by Tommy Her DO) History of appendectomy (Resolved) History of cholecystectomy (Resolved) History of hand surgery (Resolved) History of laparoscopic appendectomy (Resolved) Social History (Updated 02/07/18 @ 21:49 by Bonnie Lou) Smoking/Tobacco Use Status: Former Tobacco Use Alcohol Intake: current Alcohol Intake frequency: holidays/special occasions only Drug use: Never Substance use type: does not use Do you feel safe at home: Yes Do you feel safe in your relationship?: Yes Exam Narrative Exam Narrative: 1.Const: Well-nourished, Well-developed, appearing stated age 2.Eyes: PERRL, no conjunctival injection, and symmetrical lids. 3.ENT: Atraumatic external nose and ears. Moist MM. Neck: Symmetric, trachea midline, No thyromegaly. 4.CVS: +S1/S2, No murmurs or gallops. Peripheral pulses 2+ and equal in all extremities. Brisk capillary refill in all extremities. 5.RESP: Unlabored respiratory effort. Clear to auscultation bilaterally. No wheezes rales or rhonchi 6.GI: Soft, Nontender/Nondistended, No hepatosplenomegaly. No guarding or rebound. 7.MSK: Normocephalic/Atraumatic, Extremities w/o deformity or ttp No cyanosis or clubbing, Normal movement of all extremities 8.Skin: Warm, Dry. There is a slight 5 cm in diameter erythematous lesion on the patient's buttock, slight clearing in the pattern of a bull's-eye lesion. Raised border. No fluctuance. Minimal tenderness. Negative Nikolsky sign. No large vesicles or bulla. No palpable purpura. No oral lesions. No mucosal lesions. No evidence of severe cellulitis. No evidence of vaccine preventable rash. 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 Sensation grossly intact, no focal neurologic deficits. 10.Psych: (AAO) x3. Appropriate mood and affect Course Vital Signs Temperature 36.6 C 10/18/18 12:03 Blood Pressure 146/92 H 10/18/18 12:03 Temperature 36.6 C 10/18/18 12:03 Temperature Source Temporal Artery Scan 10/18/18 12:03 Respiratory Effort 10/18/18 12:07 Blood Pressure 146/92 H 10/18/18 12:03 Blood Pressure Position Sitting 10/18/18 12:03 Oxygen Delivery Method Room Air 10/18/18 12:03 Oxygen Flow Rate 0 10/18/18 12:03
== END 2018-10-18 13:12 | disposition home or self-care (01) ==
PROVIDERS: Emergency Provider Student in an Organized Health Care Education/Training Program; PCP Family Medicine
DX: R21 Rash and other nonspecific skin eruption (principal); S30.860A Insect bite (nonvenomous) of lower back and pelvis, initial encounter; W57.XXXA Bitten or stung by nonvenomous insect and other nonvenomous arthropods, initial encounter
CPT/HCPCS: 99283

== ENCOUNTER → 2020-11-06 13:01 | Outpatient (BNVA) | payer MEDICARE, BC, SELFPAY | PROVIDERS: PCP Registered Nurse; Referring Provider Family Medicine; Visit Provider Urology | DX: R31.29 Other microscopic hematuria (principal) | CPT/HCPCS: 81003; 99215 ==

== ENCOUNTER → 2020-12-11 14:26 | Outpatient (BNVA) | payer MEDICARE, BC, SELFPAY | PROVIDERS: PCP Registered Nurse; Referring Provider Registered Nurse; Visit Provider Urology | DX: R31.29 Other microscopic hematuria (principal); N28.1 Cyst of kidney, acquired | CPT/HCPCS: 99443 ==

== ENCOUNTER 2021-08-08 21:18 | Outpatient (REF) | payer MEDICARE, BC, SELFPAY ==
[2021-08-08 19:59] LABS: HCT 39.9 % (36.0-46.0); HGB 13.1 g/dL (11.2-15.7); MCH 28.9 pg (27.0-33.0); MCHC 32.8 % (32.0-36.0); MCV 88 fL (80-95); MPV 11.9 fL (8.0-11.0); Platelet Count 193 10^3/uL (130-400); RBC 4.54 10^6/uL (3.93-5.22); RDW 13.2 % (11.7-14.6); RDW-SD 42.7 fL; WBC 4.28 10^3/uL (4.4-10.8)
[2021-08-08 20:42] LABS: ALT 28 U/L (14-59); AST 25 U/L (15-37); Albumin 3.9 g/dL (3.4-5.0); Alkaline Phosphatase 95 U/L (46-116); Anion Gap 10.8 mmol/L (3-11); BUN 12 mg/dL (7-18); Bilirubin, Total 1.1 mg/dL (0.2-1.0); CO2 26.2 mmol/L (21.0-32.0); CREATININE 1.1 mg/dL (0.55-1.02); Calcium 9.3 mg/dL (8.5-10.1); Chloride 105 mmol/L (98-107); Estimated GFR 48.69 (mL/min/1.73m2); Glucose 110 mg/dL (74-106); Potassium 3.6 mmol/L (3.5-5.1); Sodium 142 mmol/L (136-145); TSH 1.74 uIU/mL (0.36-3.74); Total Protein 6.9 g/dL (6.4-8.2)
[2021-08-10 12:29] LABS: Lyme Ab w Rflx to Lyme Confirm Negative (Negative)
[2021-08-11 15:56] LABS: Anaplasma phagocytophilum Negative (Negative); B. miyamotoi PCR Negative (Negative); Babesia divergens/MO-1 Negative (Negative); Babesia duncani Negative (Negative); Babesia microti Negative (Negative); Ehrlichia chaffeensis Negative (Negative); Ehrlichia ewingii/canis Negative (Negative); Ehrlichia muris eauclairensis Negative (Negative)
== END 2021-08-08 21:19 | disposition home or self-care (01) ==
LOC: NCHCN 21:18
PROVIDERS: PCP Registered Nurse; Visit Provider Physician Assistant
DX: R53.83 Other fatigue (principal); Z11.8 Encounter for screening for other infectious and parasitic diseases
CPT/HCPCS: 80053; 85027; 87798; 84439; 84443; 86618

== ENCOUNTER 2021-08-15 08:28 | Outpatient (REF) | payer MEDICARE, BC, SELFPAY ==
[2021-08-15 15:00] LABS: Mono Screening POSITIVE (Negative)
== END 2021-08-15 08:29 | disposition home or self-care (01) ==
LOC: NCHCN 08:28
PROVIDERS: PCP Registered Nurse; Visit Provider Physician Assistant
DX: R53.83 Other fatigue (principal)
CPT/HCPCS: 86308

== ENCOUNTER → 2021-08-21 14:07 | Outpatient (BNVA) | payer MEDICARE, BC, SELFPAY | PROVIDERS: PCP Physician Assistant; Referring Provider Registered Nurse; Visit Provider Nurse Practitioner Gerontology | DX: R30.0 Dysuria (principal); R31.9 Hematuria, unspecified | CPT/HCPCS: 51798; 81003; 99213 ==

== ENCOUNTER 2021-08-21 15:33 | Outpatient (REF) | payer MEDICARE, BC, SELFPAY ==
[2021-08-21 16:09] LABS: Bilirubin Negative (Negative); Blood Moderate (Negative); Clarity Clear (Clear); Glucose Negative (Negative); Ketones Negative (Negative); Leukocyte Esterase Negative (Negative); Nitrite Negative (Negative); Specific Gravity 1.015 (1.005-1.025); Urobilinogen 0.2 EU/dL (Up TO 0.2)
[2021-08-21 16:23] LABS: Bacteria Negative HPF (Negative); C & S Indicated? No; Crystals Negative HPF (Negative); Epithelial Cells Moderate HPF (Negative); Mucus Trace (Negative); WBC 0-2 HPF (0-5)
== END 2021-08-21 15:34 | disposition home or self-care (01) ==
LOC: LBN 15:33
PROVIDERS: PCP Physician Assistant; Visit Provider Nurse Practitioner Gerontology
DX: R31.9 Hematuria, unspecified (principal)
CPT/HCPCS: 81003; 81015

== ENCOUNTER 2021-09-24 13:40 | Outpatient (CLI) | payer MEDICARE, BC, SELFPAY ==
--- NOTE | 2021-09-24 08:15 | DI.RAD_ITS ---
Exam(s) XR HIP RT COMPLETE AP PELVIS EXAM: XR HIP RT COMPLETE AP PELVIS INDICATION: pain in hip. COMPARISON: CR XR HIP MIN 2V RT from 09/06/2020 TECHNIQUE: 2D digital imaging was performed. Two views. FINDINGS: The hip joint spaces are well maintained. There is mild acetabular spurring. There is minimal spurr ing at the SI joints. IMPRESSION: Minimal degenerative changes. DATA REPOSITORY: RADIATION DOSE DELIVERED:
--- OUTSIDE RECORDS SUMMARY | 2021-09-24 13:42 | XMS_ITS | Encounter Summary ---
:1950 Author Organization [facility] Address [address] [place] [address] Care Team Providers Name Role Phone Unknown, Provider Unavailable Radha Alexander MD Primary Care Provider [phone] Encounter Details Date Type Department Care Team Description 08/09/2021 Lab Requisition [facility] Outr Resulting Lab, Pathology & Laboratory Provider [facility] [address], [place] [id number] Social History Tobacco Use Types Packs/Day Years Used Date Never Assessed Sex Assigned at Date Recorded Not on file documented as of this encounter Plan of Treatment Not on filedocumented as of this encounter Procedures Procedure Name Priority Date/Time Associated Diagnosis Comme nts LYME AB Routine 08/08/2021 15:22 EDT Results for this procedure are i n the results section . documented in this encounter Results LYME AB (08/08/2021 15:22 EDT) Pathologist Sig nature Lyme Ab Negative Negative [facility] Specimen Blood - Venous blood (substance) Performing Organization Address City/State/ZIP Code Phon e Number [facility] [address] [place] [address] SERVICES documented in this encounter Visit Diagnoses Not on filedocumented in this encounter Care Teams Route Deliverer Relationship Specialty Start Date End Date Radha Alexander MD PCP - General 02/16/18 [address] [place] [address] Unknown, ProviderMD 02/10/18 documented as of this encounter
--- OUTSIDE RECORDS SUMMARY | 2021-09-24 13:42 | XMS_ITS | Encounter Summary ---
:[address] [facility] Address [address] [place] [address] Care Team Providers Name Role Phone Unknown, Provider MD Primary Care Provider Unknown, Provider MD Unavailable Encounter Details Date Type Department Care Team Description 02/08/2018 Results Only [facility]- Bam Dunbar, DO [phone] [facility] [place], [place] [id number] (Wo rk) Social History Tobacco Use Types Packs/Day Years Used Date Never Assessed Sex Assigned at Date Recorded Not on file documented as of this encounter Plan of Treatment Not on filedocumented as of this encounter Procedures Procedure Name Priority Date/Time Associated Diagnosis Comme nts SURGICAL PATHOLOGY Routine 02/08/2018 11:40 Resul ts for this EST procedure are i n the results section. documented in this encounter Results SURGICAL PATHOLOGY (02/08/2018 11:40 EST) Pathology Report: SURGICAL PATHOLOGY REPORT [facility] Reports generated via electronic interface contain malathi ginal data; LABORATORY however they are lacking the format of the original re port. SERVICES Caution should be taken when reading/interpreting unfo rmatted reports. Name: ? LORY STEVEN ? Accession #: ? [id number] ? : ? 1950 (Age: [age]) ??F ? Collect Date: ? 02/08/2018 ? Location: ? [facility] ? Receive Date: ? 02/10/20 18 ? Provider: BAM SARABIA DO Copy to: JASMIN PITTMAN MD ? Final Pathologic Diagnosis: APPENDIX, LAPAROSCOPIC APPENDECTOMY: - Acute transmural suppurative appendicitis and periap pendicitis. Document reviewed and electronically signed by: DIANA MANZANO MD Report ??Date: 02/12/2018 16:48 By the signature above, the attending physician certif ies that he/she has personally conducted a gross and/or microscopic examin ation of the described specimens and rendered or confirmed the above diagnosi s. Specimen(s) Received: Appendix Clinical History: Acute appendicitis Gross Description: ? Received in formalin labelled with proper patient identification (initials T, S) and appendix is a ve rmiform appendix (11.5 cm in length x 0.9-1.3 cm in diameter), with a moderate a mount of attached mesoappendix. The proximal margin is stapled. ? The serosa is dusky, burrows-brown, focally glistening, and focally irregular. The cut surface is composed of a burrows-bonner wall. The average wall thickness is less than 0.1 cm to 0.2 cm with no discernable perfora tion site. The lumen ranges from 0.6-1.2 cm in di ameter and contains a 1.1 cm fecalith. The proximal margin is inked blue. ? The section adjacent to the proxi mal stapled margin, two volunteer patient representative cross sections and one half of the longitudinally bise cted distal tip are submitted in 1. Dr. Dominguez 02/10/2018 3:38 PM End of Report Specimen Performing Organization Address City/State/ZIP Code Phon e Number [facility] [address] [place] [address] SERVICES documented in this encounter Visit Diagnoses Not on filedocumented in this encounter Care Teams Follow Up Clerk Relationship Specialty Start Date End Date Unknown, Provider, PCP - General 02/10/18 02/15/18 Unknown, ProviderMD 02/10/18 documented as of this encounter
--- OUTSIDE RECORDS SUMMARY | 2021-09-24 13:42 | XMS_ITS | Encounter Summary ---
:1950 Author Organization [facility] Address [address] [place] [address] Care Team Providers Name Role Phone Unknown, Provider Unavailable Radha Alexander MD Primary Care Provider [phone] Encounter Details Date Type Department Care Team Description 09/15/2020 Lab Requisition [facility] Outr Resulting Lab, Pathology & Laboratory Provider [facility] acute hospital [address] [place], [place] [address] Social History Tobacco Use Types Packs/Day Years Used Date Never Assessed Sex Assigned at Date Recorded Not on file documented as of this encounter Plan of Treatment Not on filedocumented as of this encounter Procedures Procedure Name Priority Date/Time Associated Comments Diagnosis HEPATITIS C AB W Routine 09/15/2020 13:40 Results for this REFLEX TO HCV RNA BY EDT procedu re are in PCR the results section. HIV 1/2 ANTIGEN AND Routine 09/15/2020 13:40 Resu lts for this ANTIBODY, 4TH EDT procedure are in GENERATION the results section. documented in this encounter Results HEPATITIS C AB W REFLEX TO HCV RNA BY PCR (09/15/2020 13:40 EDT) Pathologist Sig nature Hep C Antibody Negative Negative [facility] Specimen Blood - Venous blood (substance) Performing Organization Address City/State/ZIP Code Phon e Number [facility] [address] [place] [address] SERVICES HIV 1/2 ANTIGEN AND ANTIBODY, 4TH GENERATION (09/15/2020 13:40 EDT) HIV 1 and 2 Negative Negative [facility] Antibody/p24 Comment: LABORATORY Antigen, 4th If acute HIV-1 infection is suspected in a high risk ??patient, submit plasma specimen for HIV-1 RNA quantitation test. SERV ICES Generation Fourth Generation assay performed on the [employer]. Specimen Blood - Venous blood (substance) Performing Organization Address City/State/ZIP Code Phon e Number [facility] [address] [place] [address] SERVICES documented in this encounter Visit Diagnoses Not on filedocumented in this encounter Care Teams Filter Press Tender Relationship Specialty Start Date End Date Radha Alexander MD PCP - General 02/16/18 [address] [place] [address] Unknown, ProviderMD 02/10/18 documented as of this encounter
--- OUTSIDE RECORDS SUMMARY | 2021-09-24 13:42 | XMS_ITS | Encounter Summary ---
:1950 Author Organization [facility] Address [address] [place] [address] Care Team Providers Name Role Phone Unavailable Primary Care Provider Unavailable Encounter Details Date Type Department Care Team Description 02/07/2018 Hospital Encounter [facility]- Annita Unknown, Provider, [facility] [address] [place] [address] [place] [address] (Work) [phone] Social History Tobacco Use Types Packs/Day Years Used Date Never Assessed Sex Assigned at Date Recorded Not on file documented as of this encounter Discharge Disposition Disposition Code Departure Means Destination Home or Self Jail documented in this encounter Plan of Treatment Not on filedocumented as of this encounter Visit Diagnoses Not on filedocumented in this encounter
--- OUTSIDE RECORDS SUMMARY | 2021-09-24 13:42 | XMS_ITS | Encounter Summary ---
:1950 Author Organization [facility] Address [address] [place] [address] Care Team Providers Name Role Phone Unknown, Provider Unavailable Jasmin Alexander MD Primary Care Provider [phone] Encounter Details Date Type Department Care Team Description 02/24/[address] [facility] Bam Her DO [phone] [facility] [place] [address] (Wo rk) Social History Tobacco Use Types Packs/Day Years Used Date Never Assessed Sex Assigned at Date Recorded Not on file documented as of this encounter Plan of Treatment Not on filedocumented as of this encounter Procedures Procedure Name Priority Date/Time Associated Diagnosis [facility]me [facility] SURGICAL PATHOLOGY Routine 02/24/2018 17:22 Resul ts for this EST procedure are i n the results section. documented in this encounter Results SURGICAL PATHOLOGY (02/24/2018 17:22 EST) Pathology Report: SURGICAL PATHOLOGY REPORT [facility] Reports generated via electronic interface contain malathi ginal data; LABORATORY however they are lacking the format of the original re port. SERVICES Caution should be taken when reading/interpreting unfo rmatted reports. Name: ? LORY STEVEN ? Accession #: ? [id number] ? : ? 1950 (Age: [age]) ??F ? Collect Date: ? 02/24/2018 ? Location: ? [facility] ? Receive Date: ? 018 ? Provider: BAM HER DO Copy to: JASMIN ALEXANDER MD ? Final Pathologic Diagnosis: GALLBLADDER, CHOLECYSTECTOMY: - Chronic cholecystitis with focal intestinal metaplasia bordering on low grade dysplasia. - Adenomyosis and pyloric gland adenoma/ hyperplasia. ?? - Generous sampling has been subsequently submitted an d evaluated with no additional finding. - Cholelithiasis. - One lymph node negative for carcinoma. - Cystic duct margin negative for intestinal metaplasi a or dysplasia. Document reviewed and electronically signed by: JOEL FRANKEL MD Report ??Date: 03/02/2018 17:26 By the signature above, the attending physician certif ies that he/she has personally conducted a gross and/or microscopic examin ation of the described specimens and rendered or confirmed the above diagnosi s. Specimen(s) Received: Gallbladder Clinical History: Biliary colic; clinical diagnosis code: ??K80.5 Gross Description: ? Received in formalin labelled with proper patient identification (initials T, S) and gallbladder is an intact gallbladder (9.3 x 2.8 x 2.6 cm) with a segment of cystic duct (1.5 cm in length x 0.5 cm in d iameter). ? The serosa is bonner-purple and glistening. The mucosa is dark green and granular, with two small roverto ypoid lesions measuring 0.4 cm in maximum dimension and the wall is 0.3 cm in th ickness. The cystic duct lumen is patent. The cystic duct margin is inked blue. A single 2.3 cm in gr eatest dimension yellow-green and granular cholelith is present. ? Two food service sales representatives sections including the two polypoid lesions and the inked, en face cystic duct margin are bright bmitted in 1. Dr. Cho 02/25/2018 3:30 PM Additional food service sales representatives sections are submitted in 2- 4. ?? 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
== END 2021-09-24 13:41 | disposition home or self-care (01) ==
LOC: DIORS 13:41
PROVIDERS: PCP Physician Assistant; Visit Provider Physician Assistant Surgical
DX: M25.551 Pain in right hip (principal); M76.891 Other specified enthesopathies of right lower limb, excluding foot
CPT/HCPCS: 99214; 73502

== ENCOUNTER → 2021-11-14 13:49 | Outpatient (BNVA) | payer MEDICARE, BC, SELFPAY | PROVIDERS: PCP Physician Assistant; Referring Provider Physician Assistant; Visit Provider Nurse Practitioner Gerontology | DX: R31.29 Other microscopic hematuria (principal) | CPT/HCPCS: 81003; 99213 ==

== ENCOUNTER 2021-11-14 17:45 | Outpatient (REF) | payer MEDICARE, BC, SELFPAY ==
[2021-11-14 16:29] LABS: Bilirubin Negative (Negative); Blood Small (Negative); Clarity Clear (Clear); Glucose Negative (Negative); Ketones Negative (Negative); Leukocyte Esterase Negative (Negative); Nitrite Negative (Negative); Specific Gravity <= 1.005 (1.005-1.025); Urobilinogen 0.2 EU/dL (Up TO 0.2); pH 5.5 (5-8)
[2021-11-14 17:15] LABS: Bacteria Negative HPF (Negative); C & S Indicated? No; Casts Negative LPF (Negative); Crystals Negative HPF (Negative); Epithelial Cells Negative HPF (Negative); Mucus Negative (Negative); Other Cells Negative (Negative); RBC Negative HPF (0-2); WBC Negative HPF (0-5)
== END 2021-11-14 17:46 | disposition home or self-care (01) ==
LOC: LBN 17:45
PROVIDERS: PCP Physician Assistant; Visit Provider Nurse Practitioner Gerontology
DX: R31.29 Other microscopic hematuria (principal)
CPT/HCPCS: 81003; 81015

== ENCOUNTER → 2022-12-11 13:29 | Outpatient (BNVA) | payer MEDICARE, OTHER, SELFPAY | PROVIDERS: PCP Physician Assistant; Referring Provider Physician Assistant; Visit Provider Nurse Practitioner Gerontology | DX: R31.9 Hematuria, unspecified (principal); Z87.891 Personal history of nicotine dependence; Z80.52 Family history of malignant neoplasm of bladder | CPT/HCPCS: 81003; 99213 ==